=== PATIENT | female | born 1985 | race Two or more races ===

== ENCOUNTER 2022-11-06 19:56 | Emergency (ER) | payer OTHER ==
[~2022-11-06] VITALS: Ht 157.5 cm; Wt 65.9 kg
[2022-11-06] MEDS ORDERED: KETOROLAC TROMETH 60MG/2ML VIAL IM ONE (22:15)
[2022-11-06 22:51] VITALS: BP 120/85
== END 2022-11-06 22:41 | disposition home or self-care (01) ==
LOC: ER 19:56
DX: M79.642 Pain in left hand (principal); M79.641 Pain in right hand; M79.601 Pain in right arm; Z90.710 Acquired absence of both cervix and uterus
CPT/HCPCS: 73030; 73090; 73130; 96372; 99284; J1885

== ENCOUNTER 2022-11-11 19:53 | Emergency (ER) | payer OTHER ==
[~2022-11-11] VITALS: Ht 157.5 cm; Wt 145.0 kg
[2022-11-11 19:53] VITALS: BP 129/76
== END 2022-11-11 21:55 | disposition home or self-care (01) ==
LOC: ER 19:53
DX: S16.1XXA Strain of muscle, fascia and tendon at neck level, initial encounter (principal); Z90.710 Acquired absence of both cervix and uterus; Z98.890 Other specified postprocedural states; V43.52XA Car driver injured in collision with other type car in traffic accident, initial encounter; Y93.89 Activity, other specified; Y92.89 Other specified places as the place of occurrence of the external cause; Y99.8 Other external cause status

== ENCOUNTER 2023-08-07 20:04 | Emergency (ER) | payer OTHER ==
[~2023-08-07] VITALS: Ht 157.5 cm; Wt 70.4 kg
[2023-08-07 20:58] VITALS: BP 113/70; PULSE 94; RESP 18; TEMP 98.7; O2SAT 97
[2023-08-07] MEDS ORDERED: DICL50TA2 PO (21:30)
== END 2023-08-07 21:57 | disposition home or self-care (01) ==
LOC: ER 20:04
DX: S80.02XA Contusion of left knee, initial encounter (principal); S80.01XA Contusion of right knee, initial encounter; W18.09XA Striking against other object with subsequent fall, initial encounter; Y93.01 Activity, walking, marching and hiking; Y92.89 Other specified places as the place of occurrence of the external cause; Y99.8 Other external cause status
CPT/HCPCS: 73562

== ENCOUNTER 2023-08-22 08:41 | Emergency (ER) | payer OTHER ==
[~2023-08-22] VITALS: Ht 157.5 cm; Wt 70.2 kg
[~2023-08-22 08:41] MED LIST: DICL50TA2 PO
[2023-08-22 09:30] VITALS: BP 119/78; PULSE 118; RESP 16; TEMP 97.1; O2SAT 96
[2023-08-22] MEDS ORDERED: KETOROLAC TROMETH 60MG/2ML VIAL IM ONE (09:45)
[2023-08-22] MEDS ORDERED: IBUP-1456 PO (09:52)
== END 2023-08-22 09:55 | disposition home or self-care (01) ==
LOC: ER 08:45
DX: S83.92XA Sprain of unspecified site of left knee, initial encounter (principal); S83.91XA Sprain of unspecified site of right knee, initial encounter; Z90.710 Acquired absence of both cervix and uterus; W18.09XA Striking against other object with subsequent fall, initial encounter; Y93.89 Activity, other specified; Y92.89 Other specified places as the place of occurrence of the external cause; Y99.8 Other external cause status
CPT/HCPCS: 96372; 99283; J1885

== ENCOUNTER 2023-11-19 00:03 | Emergency (ER) | payer OTHER ==
[~2023-11-19] VITALS: Ht 157.5 cm; Wt 70.6 kg
[~2023-11-19 00:03] MED LIST changes: +IBUP-1456 PO
[2023-11-19] MEDS: IBUPROFEN 600 MG TAB PO ONE (00:46)
[2023-11-19 00:47] VITALS: BP 125/90; PULSE 110; RESP 20; TEMP 98.4; O2SAT 96
[2023-11-21] MEDS ORDERED: CYCL-839 PO (04:15)
[2023-11-21] MEDS ORDERED: IBUP1TAB5 PO (04:15)
== END 2023-11-19 00:50 | disposition home or self-care (01) ==
LOC: ER 00:03
DX: M25.512 Pain in left shoulder (principal); M25.511 Pain in right shoulder; M25.532 Pain in left wrist; M25.531 Pain in right wrist; M54.2 Cervicalgia; Z90.710 Acquired absence of both cervix and uterus

== ENCOUNTER 2024-02-27 15:25 | Emergency (ER) | payer OTHER ==
[~2024-02-27] VITALS: Ht 157.5 cm; Wt 70.2 kg
[~2024-02-27 15:25] MED LIST changes: +CYCL-839 PO; +IBUP1TAB5 PO
[2024-02-27 16:57] VITALS: BP 114/75; PULSE 110; RESP 16; TEMP 97.1; O2SAT 96
[2024-02-27] MEDS ORDERED: METH-1182 PO (17:28)
[2024-02-27] MEDS: KETOROLAC TROMETH 60MG/2ML VIAL IM ONE (17:47)
== END 2024-02-27 17:58 | disposition home or self-care (01) ==
LOC: ER 15:25
DX: S39.012A Strain of muscle, fascia and tendon of lower back, initial encounter (principal); S29.012A Strain of muscle and tendon of back wall of thorax, initial encounter; W18.30XA Fall on same level, unspecified, initial encounter; Y93.89 Activity, other specified; Y92.89 Other specified places as the place of occurrence of the external cause; Y99.0 Civilian activity done for income or pay
CPT/HCPCS: J1885

== ENCOUNTER 2024-05-31 03:11 | Emergency (ER) | payer OTHER ==
[~2024-05-31] VITALS: Ht 157.5 cm; Wt 71.8 kg
[~2024-05-31 03:11] MED LIST changes: +METH-1182 PO
[2024-05-31] MEDS: DexAMETHasone SOD PHOS 10MG/1ML VIAL INJ IM ONE (05:20)
[2024-05-31] MEDS: KETOROLAC TROMETH 60MG/2ML VIAL IM ONE (05:20)
[2024-05-31 05:33] VITALS: BP 110/76; PULSE 98; RESP 19; TEMP 98; O2SAT 96
== END 2024-05-31 06:01 | disposition home or self-care (01) ==
LOC: ER 03:11
DX: G43.109 Migraine with aura, not intractable, without status migrainosus (principal); Z79.899 Other long term (current) drug therapy; Z98.890 Other specified postprocedural states; Z90.710 Acquired absence of both cervix and uterus
CPT/HCPCS: 96372; 99284; J1100; J1885

== ENCOUNTER 2024-06-28 21:09 | Emergency (ER) | payer OTHER ==
[~2024-06-28] VITALS: Ht 157.5 cm; Wt 71.4 kg
[2024-06-28 21:42] VITALS: BP 105/74; PULSE 110; RESP 16; TEMP 98.3; O2SAT 98
[2024-06-28] MEDS ORDERED: ACET500T58 PO (22:14)
--- NOTE | 2024-06-28 22:15 | ED.PDOC ---
Back pain HPI HPI Comments 39-year-old female presents to ER for pain management of chronic pain. Patient reports that she has been experiencing chronic bilateral shoulder pain and lower lumbar back pain since 01/28/2024 from a fall injury that occurred at work. States that she has followed up with workmen's comp several times with regards to her pain and has had imaging done that showed no abnormalities but is still experiencing bilateral shoulder pain and lower lumbar back pain. She rates her current pain a 9/10. Patient presents to ER ambulatory on arrival, with steady gait, in no distress. Denies fever, shortness of breath, chest pain, abdominal/pelvic pain, numbness/tingling, changes in urination/BM or any further symptoms/complaints Chief Complaint: Back Pain Time Seen by MD: 21:16 Primary Care Provider: DR GUTIERREZ Reviewed Notes: Nurses Notes, Medications, Allergies Allergies: Coded Allergies: NO KNOWN ALLERGIES (Unverified , 11/06/22) Home Meds Active Scripts Methocarbamol (Methocarbamol) 750 Mg Tab, 750 MG PO BID, #20 TAB Prov:RUI HOWELL 02/27/24 Ibuprofen (Ibuprofen) 800 Mg Tab, 1 TAB PO TID, #30 TAB Prov:RUI HOWELL 02/27/24 Cyclobenzaprine Hcl (Cyclobenzaprine Hcl) 10 Mg Tab, 1 TAB PO Q8HPRN PRN, #15 TAB as needed for muscle spasm Prov:SHARONA MEDINA Q SHED BOSS 11/21/23 Ibuprofen Micronized (Ibuprofen) 600 Mg Tab, 1 TAB PO Q6HPRN PRN, #20 TAB as needed for pain Prov:SHARONA MEDINA Q SHED BOSS 11/21/23 Ibuprofen (Ibuprofen) 800 Mg Tab, 1 TAB PO TID, #30 TAB Prov:RUI HOWELL PA 08/22/23 Diclofenac Potassium (Diclofenac Potassium) 50 Mg Tab, 1 TAB PO BID PRN, #60 TAB 1 Refill Prov:TAMMY GARDNER 08/07/23 Information Source: Patient Mode of Arrival: Ambulatory Past Medical History PAST MEDICAL HISTORY: Denies Surgical History: , Hernia Repair, Hysterectomy 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 Family History Family History: Unknown Social History Smoker: Non-Smoker Alcohol: Denies ETOH Use Drugs: Denies Drug Use Lives In: Home Constitutional: denies: chills, diaphoresis, fatigue, fever, malaise, sweats, weakness, others EENTM: denies: blurred vision, double vision, ear bleeding, ear discharge, ear drainage, ear pain, ear ringing, eye pain, eye redness, hearing loss, mouth pain, mouth swelling, nasal discharge, nose bleeding, nose congestion, nose pain, photophobia, tearing, throat pain, throat swelling, voice changes, others Respiratory: denies: cough, hemoptysis, orthopnea, SOB at rest, shortness of breath, SOB with excertion, stridor, wheezing, others Cardiovascular: denies: chest pain, dizzy spells, diaphoresis, Dyspnea on exertion, edema, irregular heart beat, left arm pain, lightheadedness, palpitations, PND, syncope, others Gastrointestinal: denies: abdomen distended, abdominal pain, blood streaked bowels, constipated, diarrhea, dysphagia, difficulty swallowing, hematemesis, melena, nausea, poor appetite, poor fluid intake, rectal bleeding, rectal pain, vomiting, others Genitourinary: denies: abnormal vagina bleeding, burning, dyspareunia, dysuria, flank pain, frequency, hematuria, incontinence, pain, , vagina discharge, urgency, others Neurological: denies: dizziness, fainting, headache, left sided numbness, left sided weakness, numbness, paresthesia, pre-existing deficit, right sided numbness, right sided weakness, seizure, speech problems, tingling, tremors, weakness, others Musculoskeletal: reports: others (As stated in HPI) Integumetry: denies: bruises, change in color, change in hair/nails, dryness, laceration, lesions, lumps, rash, wounds, others Allergic/Immunocompromised: denies: Difficulty Healing, Frequent Infections, Hives, Itching, others Hematologic/Lymphatic: denies: anemia, blood clots, easy bleeding, easy bruising, swollen glands, others Endocrine: denies: excessive hunger, excessive sweating, excessive thirst, excessive urination, flushing, intolerance to cold, intolerance to heat, unexplained weight gain, unexplained weight loss, others Psychiatric: denies: anxiety, bipolar disorder, depression, hopeless, panic disorder, schizophrenia, sleepless, suicidal, others Physical Exam General Appearance: No Apparent Distress HEENT: PERRL/EOMI Neck: Full Range of Motion, Non-Tender, Normal Respiratory: Chest Non-Tender, Lungs Clear, No Accessory Muscle Use, No Res piratory Distress, Normal Breath Sounds Cardiovascular: No Murmur, No Gallop, Regular Rate/Rhythm Breast Exam: Deferred Gastrointestinal: Non Tender, No Pulsatile Mass, Soft Genitalia: Deferred Pelvic: Deferred Rectal: Deferred Extremities: No calf tenderness, Normal capillary refill, Normal range of motion Musculoskeletal : Extremity Location: Back (Slight TTP to bilateral lower lumbar paraspinals noted. No skin changes noted. Gait intact without abnormality), Shoulder (Slight TTP to bilateral GH joints. No deformities/skin changes noted. Negative Apley scratch test bilateral shoulders. Pulses intact) Neurologic: Alert, No Motor Deficits, Normal Affect, Normal Mood, No Sensory D eficits Cerebellar Function: Normal Reflexes: Normal Skin: Dry, Normal Color, Warm Lymphatic: No Adenopathy Was a procedure done? Was a procedure done?: No Sedation Sedation?: No Back Pain Differential Dx Differential Diagnosis: Fracture, Other (Neurovascular injury, dislocation) X-Ray, Labs, Meds, VS Vital Signs Date Time Temp Pulse Resp B/P (MAP) Pulse Ox O2 Delivery O2 Flow Rate FiO2 06/28/24 21:25 97.4 114 18 107/74 (85) 98 Patient neurovascularly intact and in no distress during ER visit/prior to discharge Advised on rest/no strenuous activity Workman's comp paperwork filled out Advised to follow up with PCP and workman's comp PCP in 1-2 days Patient verbalized understanding and agreeable with current plan of care Advised to return to ER immediately if symptoms worsen Time of 1ST Reevaluation: 21:54 Reevaluation 1ST: N/A Patient Education/Counseling: Diagnosis, Treatment, Prognosis, Need For Follow Up Family Education/Counseling: No Family Present Departure 1 Departure Time of Disposition: 22:10 Impression: Primary Impression: Chronic lumbar pain Qualified Codes: M54.50 - Low back pain, unspecified; G89.29 - Other chronic pain Additional Impressions: Chronic left shoulder pain Chronic right shoulder pain Work related injury Disposition: HOME / SELF CARE / HOMELESS Condition: Stable e-Prescriptions Acetaminophen (Acetaminophen) 500 Mg Tab 500 MG PO Q4HPRN, #30 TAB 0 Refills Prov: CARA PABLO 06/28/24 Discharged With: Self Critical Care Note Critical Care Time?: No Stability Stability form required: No Heart Score Heart Score: Heart Score Response (Comments) Value History N/A 0 EKG N/A 0 Age N/A 0 Risk Factors N/A 0 Troponin N/A 0 Total 0 CARA PABLO Jun 28, 2024 22:15
== END 2024-06-28 22:30 | disposition home or self-care (01) ==
LOC: ER 21:09
DX: G89.29 Other chronic pain (principal); M54.59 Other low back pain; M25.511 Pain in right shoulder; M25.512 Pain in left shoulder; Z79.899 Other long term (current) drug therapy; Z90.710 Acquired absence of both cervix and uterus; Z98.890 Other specified postprocedural states; X58.XXXA Exposure to other specified factors, initial encounter; Y93.89 Activity, other specified; Y92.89 Other specified places as the place of occurrence of the external cause; Y99.8 Other external cause status

== ENCOUNTER 2024-07-14 18:33 | Emergency (ER) | payer OTHER ==
[~2024-07-14] VITALS: Ht 157.5 cm; Wt 73.9 kg
[~2024-07-14 18:33] MED LIST changes: +ACET500T58 PO
[2024-07-14 19:15] VITALS: BP 104/64; PULSE 104; RESP 18; O2SAT 95
--- NOTE | 2024-07-14 20:12 | ED.PDOC ---
Musculoskeletal HPI Comments 39-year-old female presents to ER with complaints of work-related injury. Patient reports that she has had three separate work-related injuries over the course of 5 months from mechanical falls and has since been experiencing upper/lower back pain, bilateral hand pain, bilateral knee pain and bilateral ankle pain. She rates her current pain a 8/10. Denies use of medications for current symptoms. Patient presents to ER ambulatory on arrival, with steady gait, in no distress and states she has followed-up with workmans comp with regards to her work related injuries but continues to have similar pain to bilateral hands, bilateral knees, bilateral ankles and upper/lower back and is requesting a work-note in ER today. Denies any further symptoms/complaints Chief Complaint: Fall Injury Time Seen by MD: 18:36 Primary Care Provider: DR GUTIERREZ Reviewed Notes: Nurses Notes, Medications, Allergies Allergies: Coded Allergies: NO KNOWN ALLERGIES (Unverified , 11/06/22) Home Meds Active Scripts Acetaminophen (Acetaminophen) 500 Mg Tab, 500 MG PO Q4HPRN, #30 TAB 0 Refills Prov:CARA PABLO 07/14/24 Acetaminophen (Acetaminophen) 500 Mg Tab, 500 MG PO Q4HPRN, #30 TAB 0 Refills Prov:CARA PABLO 06/28/24 Methocarbamol (Methocarbamol) 750 Mg Tab, 750 MG PO BID, #20 TAB Prov:RUI HOWELL 02/27/24 Ibuprofen (Ibuprofen) 800 Mg Tab, 1 TAB PO TID, #30 TAB Prov:RUI HOWELL 02/27/24 Cyclobenzaprine Hcl (Cyclobenzaprine Hcl) 10 Mg Tab, 1 TAB PO Q8HPRN PRN, #15 TAB as needed for muscle spasm Prov:SHARONA MEDINA Q SALES AND MARKETING ASSOCIATE 11/21/23 Ibuprofen Micronized (Ibuprofen) 600 Mg Tab, 1 TAB PO Q6HPRN PRN, #20 TAB as needed for pain Prov:TANJA MEDINAA Q SALES AND MARKETING ASSOCIATE 11/21/23 Ibuprofen (Ibuprofen) 800 Mg Tab, 1 TAB PO TID, #30 TAB Prov:RUI HOWELL 08/22/23 Diclofenac Potassium (Diclofenac Potassium) 50 Mg Tab, 1 TAB PO BID PRN, #60 TAB 1 Refill Prov:TAMMY GARDNER 08/07/23 Information Source: Patient Mode of Arrival: Ambulatory Past Medical History PAST MEDICAL HISTORY: Denies Surgical History: , Hernia Repair, Hysterectomy 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 Pertinent LINE REPAIRER History Family History Family History: Unknown Social History Smoker: Non-Smoker Alcohol: Denies ETOH Use Drugs: Denies Drug Use Lives In: Home Constitutional: denies: chills, diaphoresis, fatigue, fever, malaise, sweats, weakness, others EENTM: denies: blurred vision, double vision, ear bleeding, ear discharge, ear drainage, ear pain, ear ringing, eye pain, eye redness, hearing loss, mouth pain, mouth swelling, nasal discharge, nose bleeding, nose congestion, nose pain, photophobia, tearing, throat pain, throat swelling, voice changes, others Respiratory: denies: cough, hemoptysis, orthopnea, SOB at rest, shortness of breath, SOB with excertion, stridor, wheezing, others Cardiovascular: denies: chest pain, dizzy spells, diaphoresis, Dyspnea on exertion, edema, irregular heart beat, left arm pain, lightheadedness, palpitations, PND, syncope, others Gastrointestinal: denies: abdomen distended, abdominal pain, blood streaked bowels, constipated, diarrhea, dysphagia, difficulty swallowing, hematemesis, melena, nausea, poor appetite, poor fluid intake, rectal bleeding, rectal pain, vomiting, others Genitourinary: denies: abnormal vagina bleeding, burning, dyspareunia, dysuria, flank pain, frequency, hematuria, incontinence, pain, , vagina discharge, urgency, others Neurological: denies: dizziness, fainting, headache, left sided numbness, left sided weakness, numbness, paresthesia, pre-existing deficit, right sided numbness, right sided weakness, seizure, speech problems, tingling, tremors, weakness, others Musculoskeletal: reports: others (As stated in HPI) Integumetry: denies: bruises, change in color, change in hair/nails, dryness, laceration, lesions, lumps, rash, wounds, others Allergic/Immunocompromised: denies: Difficulty Healing, Frequent Infections, Hives, Itching, others Hematologic/Lymphatic: denies: anemia, blood clots, easy bleeding, easy bruising, swollen glands, others Endocrine: denies: excessive hunger, excessive sweating, excessive thirst, excessive urination, flushing, intolerance to cold, intolerance to heat, unexplained weight gain, unexplained weight loss, others Psychiatric: denies: anxiety, bipolar disorder, depression, hopeless, panic disorder, schizophrenia, sleepless, suicidal, others Physical Exam General Appearance: No Apparent Distress HEENT: PERRL/EOMI Neck: Full Range of Motion, Non-Tender, Normal Respiratory: Chest Non-Tender, Lungs Clear, No Accessory Muscle Use, No Respiratory Distress, Normal Breath Sounds Cardiovascular: No Murmur, No Gallop, Regular Rate/Rhythm Breast Exam: Deferred Gastrointestinal: NOT DONE Genitalia: Deferred Pelvic: Deferred Rectal: Deferred Extremities: Normal capillary refill, Normal range of motion Musculoskeletal : Extremity Location: Ankle (No TTP/skin changes to bilateral ankles noted), Back (Minimal TTP diffuse to thoracic and lumbar paraspinals noted. No skin changes appreciated. Gait intact without abnormality), Hand (Minimal TTP noted diffuse to joints of bilateral hands. No skin changes/deformities noted. No TTP to bilateral wrists noted. Shear Tender strength intact and equal bilaterally. Pulses intact), Knee (Minimal TTP to bilateral anterior knees noted. No skin changes/deformities appreciated. Negative anterior/Natalie's test noted bilaterally. Pulses intact) Neurologic: Alert, pipe organ builder II-XII nml as Tested, No Motor Deficits, Normal Affect, Normal Mood, No Sensory Deficits Cerebellar Function: Normal Reflexes: Normal Skin: Dry, Normal Color, Warm Peripheral Pulses: 2+ femoral (R), 2+ femoral (L), 2+ dorsalis pedis (R), 2+ dorsalis pedis (L), 2+ Radial (R), 2+ Radial (L), 2+ Brachial (R), 2+ Brachial (L) Lymphatic: No Adenopathy Was a procedure done? Was a procedure done?: No Sedation Sedation?: No Differential Diagnosis EXT Differential Diagnosis: Fracture, Dislocation, Neurovascular injury X-Ray, Labs, Meds, VS Vital Signs Date Time Temp Pulse Resp B/P (MAP) Pulse Ox O2 Delivery O2 Flow Rate FiO2 07/14/24 19:15 98.3 104 18 104/64 (90) 95 Patient neurovascularly intact and in no distress during ER visit/prior to discharge Workman's comp paperwork filled out Advised to follow up with PCP and workman's comp PCP in 1-2 days Patient verbalized understanding and agreeable with current plan of care Advised to return to ER immediately if symptoms worsen Time of 1ST Reevaluation: 19:54 Reevaluation 1ST: N/A Patient Education/Counseling: Diagnosis, Treatment, Prognosis, Need For Follow Up Family Education/Counseling: No Family Present Departure 1 Departure Time of Disposition: 20:10 Impression: Primary Impression: Chronic back pain Qualified Codes: M54.9 - Dorsalgia, unspecified; G89.29 - Other chronic pain Additional Impressions: Chronic hand pain Qualified Codes: M79.643 - Pain in unspecified hand; G89.29 - Other chronic pain Chronic knee pain Qualified Codes: M25.561 - Pain in right knee; M25.562 - Pain in left knee; G89.29 - Other chronic pain Chronic ankle pain Qualified Codes: M25.571 - Pain in right ankle and joints of right foot; M25.572 - Pain in left ankle and joints of left foot; G89.29 - Other chronic pain Work related injury Disposition: 01 HOME / SELF CARE / HOMELESS Condition: Stable e-Prescriptions Acetaminophen (Acetaminophen) 500 Mg Tab 500 MG PO Q4HPRN, #30 TAB 0 Refills Prov: CARA PABLO 07/14/24 Critical Care Note Critical Care Time?: No Stability Stability form required: No Heart Score Heart Score: Heart Score Response (Comments) Value History N/A 0 EKG N/A 0 Age N/A 0 Risk Factors N/A 0 Troponin N/A 0 Total 0 CARA PABLO Jul 14, 2024 20:12
== END 2024-07-14 20:38 | disposition home or self-care (01) ==
LOC: ER 18:33
DX: M79.641 Pain in right hand (principal); M79.642 Pain in left hand; M25.561 Pain in right knee; M25.562 Pain in left knee; M25.571 Pain in right ankle and joints of right foot; M25.572 Pain in left ankle and joints of left foot; M54.50 Low back pain, unspecified; G89.29 Other chronic pain; Z90.710 Acquired absence of both cervix and uterus; Z98.890 Other specified postprocedural states; Z79.1 Long term (current) use of non-steroidal anti-inflammatories (NSAID); Z79.899 Other long term (current) drug therapy; X58.XXXA Exposure to other specified factors, initial encounter; Y93.89 Activity, other specified; Y92.89 Other specified places as the place of occurrence of the external cause; Y99.0 Civilian activity done for income or pay

== ENCOUNTER 2024-10-27 14:08 | Emergency (ER) | payer OTHER ==
[~2024-10-27] VITALS: Ht 157.5 cm; Wt 73.6 kg
--- NOTE | 2024-10-27 14:41 | ED.PDOC ---
History of Present Illness HPI Comments 39F presents to the ER w/ prior Hx of anxiety which is associated to the c/c of Bilateral LE pain. Pt reports that she needs a work injury note due from her having ongoing pain on her bilateral feet, lower back, knee pain and wrist pain, all that happened months ago and are no new injuries. Her earliest work related injury was in June. SHx of , Hysterectomy and Hernia Repair. Denies chills, fever, N/V/D, SOB, CP or no other associated symptom's, modifiers, recent injuries or sick contact at this time. Time Seen by MD: 14:30 Primary Care Provider: DR GUTIERREZ Reviewed Notes: Nurses Notes, Medications, Allergies Allergies: Coded Allergies: NO KNOWN ALLERGIES (Unverified , 11/06/22) Home Meds Active Scripts Acetaminophen (Acetaminophen) 500 Mg Tab, 500 MG PO Q4HPRN, #30 TAB 0 Refills Prov:CARA PABLO 07/14/24 Acetaminophen (Acetaminophen) 500 Mg Tab, 500 MG PO Q4HPRN, #30 TAB 0 Refills Prov:CARA PABLO 06/28/24 Methocarbamol (Methocarbamol) 750 Mg Tab, 750 MG PO BID, #20 TAB Prov:RUI HOWELL 02/27/24 Ibuprofen (Ibuprofen) 800 Mg Tab, 1 TAB PO TID, #30 TAB Prov:RUI HOWELL 02/27/24 Cyclobenzaprine Hcl (Cyclobenzaprine Hcl) 10 Mg Tab, 1 TAB PO Q8HPRN PRN, #15 TAB as needed for muscle spasm Prov:SHARONA MEDINA SPORTS ATTORNEY 11/21/23 Ibuprofen Micronized (Ibuprofen) 600 Mg Tab, 1 TAB PO Q6HPRN PRN, #20 TAB as needed for pain Prov:TANJA MEDINAA Q SPORTS ATTORNEY 11/21/23 Ibuprofen (Ibuprofen) 800 Mg Tab, 1 TAB PO TID, #30 TAB Prov:RUI HOWELL 08/22/23 Diclofenac Potassium (Diclofenac Potassium) 50 Mg Tab, 1 TAB PO BID PRN, #60 TAB 1 Refill Prov:TAMMY GARDNER 08/07/23 Information Source: Patient Mode of Arrival: Ambulatory Severity: Moderate Timing: Months Duration: Since onset Prehospital treatment: None Past Medical History PAST MEDICAL HISTORY: Anxiety Surgical History: , Hernia Repair, Hysterectomy 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 Family History Family History: Reviewed,noncontributory to illness, Unknown Social History Smoker: Non-Smoker Alcohol: Denies ETOH Use Drugs: Denies Drug Use Lives In: Home Constitutional: denies: chills, diaphoresis, fatigue, fever, malaise, sweats, weakness, others EENTM: denies: blurred vision, double vision, ear bleeding, ear discharge, ear drainage, ear pain, ear ringing, eye pain, eye redness, hearing loss, mouth pain, mouth swelling, nasal discharge, nose bleeding, nose congestion, nose pain, photophobia, tearing, throat pain, throat swelling, voice changes, others Respiratory: denies: cough, hemoptysis, orthopnea, SOB at rest, shortness of breath, SOB with excertion, stridor, wheezing, others Cardiovascular: denies: chest pain, dizzy spells, diaphoresis, Dyspnea on exertion, edema, irregular heart beat, left arm pain, lightheadedness, palpitations, PND, syncope, others Gastrointestinal: denies: abdomen distended, abdominal pain, blood streaked bowels, constipated, diarrhea, dysphagia, difficulty swallowing, hematemesis, melena, nausea, poor appetite, poor fluid intake, rectal bleeding, rectal pain, vomiting, others Genitourinary: denies: abnormal vagina bleeding, burning, dyspareunia, dysuria, flank pain, frequency, hematuria, incontinence, pain, , vagina discharge, urgency, others Neurological: denies: dizziness, fainting, headache, left sided numbness, left sided weakness, numbness, paresthesia, pre-existing deficit, right sided numbness, right sided weakness, seizure, speech problems, tingling, tremors, weakness, others Musculoskeletal: reports: back pain, others (Feet pain, wrist pain, knee pain); denies: gout, joint pain, joint swelling, muscle pain, muscle stiffness, neck pain Integumetry: denies: bruises, change in color, change in hair/nails, dryness, laceration, lesions, lumps, rash, wounds, others Allergic/Immunocompromised: denies: Difficulty Healing, Frequent Infections, Hives, Itching, others Hematologic/Lymphatic: denies: anemia, blood clots, easy bleeding, easy bruising, swollen glands, others Endocrine: denies: excessive hunger, excessive sweating, excessive thirst, excessive urination, flushing, intolerance to cold, intolerance to heat, unexplained weight gain, unexplained weight loss, others Psychiatric: denies: anxiety, bipolar disorder, depression, hopeless, panic disorder, schizophrenia, sleepless, suicidal, others All Other Systems: Reviewed and Negative Physical Exam General Appearance: Moderate Distress, Normal HEENT: Normal ENT Inspection, Pharynx Normal, TMs Normal Neck: Full Range of Motion, Non-Tender, Normal, Normal Inspection Respiratory: Chest Non-Tender, Lungs Clear, No Accessory Muscle Use, No Respiratory Distress, Normal Breath Sounds Cardiovascular: No Edema, No JVD, No Murmur, No Gallop, Normal Peripheral Pulses, Regular Rate/Rhythm Breast Exam: Deferred Gastrointestinal: No Organomegaly, Non Tender, No Pulsatile Mass, Normal Bowel Sounds, Soft Genitalia: Deferred Pelvic: Deferred Rectal: Deferred Extremities: No calf tenderness, Normal capillary refill, Normal inspection, No rmal range of motion, Non-tender, No pedal edema Musculoskeletal : Apperance: Normal Neurologic: Alert, special machine operator II-XII nml as Tested, No Motor Deficits, Normal Affect, Normal Mood, No Sensory Deficits Cerebellar Function: Normal Reflexes: Normal Skin: Dry, Normal Color, Warm Peripheral Pulses: 3+ Radial (R), 3+ Radial (L) Lymphatic: No Adenopathy Was a procedure done? Was a procedure done?: No Differential Dx Considerations may include: Muscle strain X-Ray, Labs, Meds, VS Vital Signs Date Time Temp Pulse Resp B/P (MAP) Pulse Ox O2 Delivery O2 Flow Rate FiO2 10/27/24 14:54 98.0 117 20 130/82 (98) 98 CLINICAL INDICATION: Trauma TECHNIQUE: 1 radiographic views of the pelvis were obtained. Comparison: None FINDINGS/IMPRESSION: There is no evidence of acute fracture or dislocation. The visualized joint space is well maintained. The alignment is anatomical. There is no radiopaque foreign body. INDICATION: Trauma COMPARISON: XY LUMBAR SPINE 3 VIEW on DOS: 11/21/23 TECHNIQUE: 3 views of the lumbar spine were obtained. FINDINGS: The lumbar vertebral alignment is normal. The intervertebral disc spaces are well-maintained. No significant facet arthropathy is noted. No acute fracture, vertebral compression deformity or aggressive osseous lesions. The paravertebral soft tissues are grossly unremarkable. IMPRESSION: No acute fracture. ICAL INDICATION: fall TECHNIQUE: 2 radiographic views of the left knee were obtained. Comparison: XY R KNEE 3V XRAY on DOS: 08/07/23, XY L KNEE 3V XRAY on DOS: 08/07/23 FINDINGS/IMPRESSION: There is no evidence of acute fracture or dislocation. The visualized joint space is well maintained. The alignment is anatomical. There is no radiopaque foreign body. ICAL INDICATION: fall TECHNIQUE: 2 radiographic views of the right knee were obtained. Comparison: XY R KNEE 3V XRAY on DOS: 08/07/23, XY L KNEE 3V XRAY on DOS: 08/07/23 FINDINGS/IMPRESSION: There is no evidence of acute fracture or dislocation. The visualized joint space is well maintained. The alignment is anatomical. There is no radiopaque foreign body. ICAL INDICATION: fall TECHNIQUE: 2 radiographic views of the left foot left foot were obtained. Comparison: None FINDINGS/IMPRESSION: There is no evidence of acute fracture or dislocation. Small plantar calcaneal enthesophyte. The visualized joint space is well maintained. The alignment is anatomical. There is no radiopaque foreign body. ICAL INDICATION: fall TECHNIQUE: 2 radiographic views of the right foot were obtained. Comparison: None FINDINGS/IMPRESSION: There is no evidence of acute fracture or dislocation. Small plantar calcaneal enthesophyte. The visualized joint space is well maintained. The alignment is anatomical. There is no radiopaque foreign body. Patient alert. No sign of distress. Ambulating without difficulty. Vitals stable. No deformity. No recent fall. No recent trauma. Moving all extremities. X-ray of the feet because she was complaining of pain was within normal limits. Her steroids is not matching. No sepsis. No sign of any fractures. As mentioned before she is moving all extremities. Able to write with a pen without difficulty. He is able to stand on her feet without falling. No sign of any back spasm. No sign of any back fracture. She is able to withstand her weight. Could not understand why she is in the ER even though she did not have any trauma recently. All her symptoms are from last June. No new symptom. Abdomen is soft nontender. Mentating well. No sign of TIA. Good lung expansion. Physical examination pristine. She will possibly need MRI for further testing by her primary care physician. No acute process in the ER. No leg swelling. All imaging studies are within normal limits. Was given [place] in the ER. Explained to the patient in detail. Was told to follow up with her primary care physician. Was told to come back if there is any problem. Time of 1ST Reevaluation: 15:00 Reevaluation 1ST: Improved Patient Education/Counseling: Diagnosis, Treatment, Prognosis Family Education/Counseling: No Family Present Departure 1 Departure Time of Disposition: 15:51 Impression: Primary Impression: Muscle strain Additional Impression: Chronic lumbar pain Qualified Codes: M54.50 - Low back pain, unspecified; G89.29 - Other chronic pain Disposition: 01 HOME / SELF CARE / HOMELESS Condition: Good Discharged With: Self Critical Care Note Critical Care Time?: No Stability Stability form required: No Heart Score Heart Score: Heart Score Response (Comments) Value History N/A 0 EKG N/A 0 Age N/A 0 Risk Factors N/A 0 Troponin N/A 0 Total 0 I personally scribed for PILY KINGSLEY MD ([email or web address]) on 10/27/24 at 14:41. Electronically submitted by Law Coburn ([email or web address]). I personally scribed for PILY KINGSLEY MD ([email or web address]) on 10/27/24 at 15:32. Electronically submitted by Law Coburn ([email or web address]). PILY KINGSLEY MD Oct 27, 2024 14:41
--- NOTE | 2024-10-27 15:04 | DVH ---
CLINICAL INDICATION: Trauma TECHNIQUE: 1 radiographic views of the pelvis were obtained. Comparison: None FINDINGS/IMPRESSION: There is no evidence of acute fracture or dislocation. The visualized joint space is well maintained. The alignment is anatomical. There is no radiopaque foreign body.
--- NOTE | 2024-10-27 15:09 | DVH ---
INDICATION: Trauma COMPARISON: XY LUMBAR SPINE 3 VIEW on DOS: 11/21/23 TECHNIQUE: 3 views of the lumbar spine were obtained. FINDINGS: The lumbar vertebral alignment is normal. The intervertebral disc spaces are well-maintained. No significant facet arthropathy is noted. No acute fracture, vertebral compression deformity or aggressive osseous lesions. The paravertebral soft tissues are grossly unremarkable. IMPRESSION: No acute fracture.
--- NOTE | 2024-10-27 15:16 | DVH ---
CLINICAL INDICATION: fall TECHNIQUE: 2 radiographic views of the right foot were obtained. Comparison: None FINDINGS/IMPRESSION: There is no evidence of acute fracture or dislocation. Small plantar calcaneal enthesophyte. The visualized joint space is well maintained. The alignment is anatomical. There is no radiopaque foreign body.
--- NOTE | 2024-10-27 15:17 | DVH ---
CLINICAL INDICATION: fall TECHNIQUE: 2 radiographic views of the left foot left foot were obtained. Comparison: None FINDINGS/IMPRESSION: There is no evidence of acute fracture or dislocation. Small plantar calcaneal enthesophyte. The visualized joint space is well maintained. The alignment is anatomical. There is no radiopaque foreign body.
--- NOTE | 2024-10-27 15:22 | DVH ---
CLINICAL INDICATION: fall TECHNIQUE: 2 radiographic views of the right knee were obtained. Comparison: XY R KNEE 3V XRAY on DOS: 08/07/23, XY L KNEE 3V XRAY on DOS: 08/07/23 FINDINGS/IMPRESSION: There is no evidence of acute fracture or dislocation. The visualized joint space is well maintained. The alignment is anatomical. There is no radiopaque foreign body.
--- NOTE | 2024-10-27 15:23 | DVH ---
CLINICAL INDICATION: fall TECHNIQUE: 2 radiographic views of the left knee were obtained. Comparison: XY R KNEE 3V XRAY on DOS: 08/07/23, XY L KNEE 3V XRAY on DOS: 08/07/23 FINDINGS/IMPRESSION: There is no evidence of acute fracture or dislocation. The visualized joint space is well maintained. The alignment is anatomical. There is no radiopaque foreign body.
[2024-10-27] MEDS: HYDROcodone-ACET 5/325MG TAB PO ONE (16:00)
[2024-10-27] MEDS ORDERED: CYCL-839 PO (17:52)
[2024-10-27 18:03] VITALS: BP 109/77; PULSE 113; RESP 17; TEMP 98.7; O2SAT 96
== END 2024-10-27 15:54 | disposition home or self-care (01) ==
LOC: ER 14:08
DX: S96.911A Strain of unspecified muscle and tendon at ankle and foot level, right foot, initial encounter (principal); S96.912A Strain of unspecified muscle and tendon at ankle and foot level, left foot, initial encounter; S66.911A Strain of unspecified muscle, fascia and tendon at wrist and hand level, right hand, initial encounter; S66.912A Strain of unspecified muscle, fascia and tendon at wrist and hand level, left hand, initial encounter; G89.29 Other chronic pain; M54.50 Low back pain, unspecified; M25.561 Pain in right knee; M25.562 Pain in left knee; F41.9 Anxiety disorder, unspecified; Z90.710 Acquired absence of both cervix and uterus; Z98.890 Other specified postprocedural states; X58.XXXA Exposure to other specified factors, initial encounter; Y93.89 Activity, other specified; Y92.89 Other specified places as the place of occurrence of the external cause; Y99.8 Other external cause status
CPT/HCPCS: 72100; 72170; 73560; 73620

== ENCOUNTER 2024-12-30 19:52 | Emergency (ER) | payer OTHER ==
[~2024-12-30] VITALS: Ht 157.5 cm; Wt 69.7 kg
--- NOTE | 2024-12-30 21:05 | ED.PDOC ---
SOB-HPI HPI Comments 39y F who presents to the ED for chief complaint of cough. Pt states she has been having cough with new associated episodes of urination during episodes of intense cough episodes over the past few days. Pt states her vomit has was blue/green grossly. Pt states she has also been having bilateral leg pain with associated nausea and diarrhea. Pt otherwise denies any recent sick contacts. Pt denies any other symptoms at this time. 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 Family History Family History: Reviewed,noncontributory to illness, Unknown Social History Smoker: Non-Smoker Alcohol: Denies ETOH Use Drugs: Denies Drug Use Lives In: Home Constitutional: denies: chills, diaphoresis, fatigue, fever, malaise, sweats, weakness, others EENTM: denies: blurred vision, double vision, ear bleeding, ear discharge, ear drainage, ear pain, ear ringing, eye pain, eye redness, hearing loss, mouth pain, mouth swelling, nasal discharge, nose bleeding, nose congestion, nose pain, photophobia, tearing, throat pain, throat swelling, voice changes, others Respiratory: reports: cough; denies: hemoptysis, orthopnea, SOB at rest, shortness of breath, SOB with excertion, stridor, wheezing, others Cardiovascular: denies: chest pain, dizzy spells, diaphoresis, Dyspnea on exertion, edema, irregular heart beat, left arm pain, lightheadedness, palpitations, PND, syncope, others Gastrointestinal: reports: diarrhea, nausea, vomiting; denies: abdomen distended, abdominal pain, blood streaked bowels, constipated, dysphagia, difficulty swallowing, hematemesis, melena, poor appetite, poor fluid intake, rectal bleeding, rectal pain, others Genitourinary: denies: abnormal vagina bleeding, burning, dyspareunia, dysuria, flank pain, frequency, hematuria, incontinence, pain, , vagina discharge, urgency, others Neurological: denies: dizziness, fainting, headache, left sided numbness, left sided weakness, numbness, paresthesia, pre-existing deficit, right sided numbness, right sided weakness, seizure, speech problems, tingling, tremors, weakness, others Musculoskeletal: denies: back pain, gout, joint pain, joint swelling, muscle pain, muscle stiffness, neck pain, others Integumetry: denies: bruises, change in color, change in hair/nails, dryness, laceration, lesions, lumps, rash, wounds, others Allergic/Immunocompromised: denies: Difficulty Healing, Frequent Infections, Hives, Itching, others Hematologic/Lymphatic: denies: anemia, blood clots, easy bleeding, easy bruising, swollen glands, others Endocrine: denies: excessive hunger, excessive sweating, excessive thirst, excessive urination, flushing, intolerance to cold, intolerance to heat, unexplained weight gain, unexplained weight loss, others Psychiatric: denies: anxiety, bipolar disorder, depression, hopeless, panic disorder, schizophrenia, sleepless, suicidal, others All Other Systems: Reviewed and Negative Physical Exam General Appearance: No Apparent Distress HEENT: Normal ENT Inspection, Pharynx Normal, TMs Normal Neck: Full Range of Motion, Non-Tender, Normal, Normal Inspection Respiratory: Chest Non-Tender, No Accessory Muscle Use, No Respiratory Distress, Rhonchi Cardiovascular: No Edema, No JVD, No Murmur, No Gallop, Normal Peripheral Pulses, Regular Rate/Rhythm Breast Exam: Deferred Gastrointestinal: No Organomegaly, Non Tender, No Pulsatile Mass, Normal Bowel Sounds, Soft Genitalia: Deferred Pelvic: Deferred Rectal: Deferred Extremities: No calf tenderness, Normal capillary refill, Normal inspection, Normal range of motion, Non-tender, No pedal edema Musculoskeletal : Apperance: Normal Neurologic: Alert, attending psychiatrist II-XII nml as Tested, No Motor Deficits, Normal Affect, Normal Mood, No Sensory Deficits Cerebellar Function: Normal Reflexes: Normal Skin: Dry, Normal Color, Warm Lymphatic: No Adenopathy Was a procedure done? Was a procedure done?: No Differential Dx Differential Diagnosis: Bronchitis, Pneumonia, Pulmonary Embolism Comments stress incontinence, viral syndrome, COVID, X-Ray, Labs, Meds, VS Lab Test 12/30/24 21:10 Range/Units Influenza Type A Antigen Negative Negative Influenza Type B Antigen Negative Negative SARS-CoV-2 Antigen (Rapid) Negative NEGATIVE The patient was COVID test as well as influenza a and influenza B are negative The patient was chest x-ray is pending The patient was being started on Zithromax and a Medrol Dosepak The patient was being signed out to Dr. Delaney Images Reviewed?: Images reviewed and evaluated by me Time of 1ST Reevaluation: 21:30 Reevaluation 1ST: Unchanged Patient Education/Counseling: Diagnosis, Treatment, Prognosis, Need For Follow Up Family Education/Counseling: No Family Present Departure 1 Departure Time of Disposition: 22:24 Impression: Primary Impression: Acute bronchitis Qualified Codes: J20.9 - Acute bronchitis, unspecified Disposition: 01 HOME / SELF CARE / HOMELESS Condition: Fair e-Prescriptions Methylprednisolone (Medrol Dosepak) 4 Mg Evaristo 4 MG PO UD, #21 TAB UAD Prov: FAHEEM MEZA MD 12/30/24 Azithromycin (Zithromax) 500 Mg Tab 1 TAB PO DAILY, #5 TAB Prov: FAHEEM MEZA MD 12/30/24 Discharged With: Self Critical Care Note Critical Care Time?: No Stability Stability form required: No Heart Score Heart Score: Heart Score Response (Comments) Value History N/A 0 EKG N/A 0 Age N/A 0 Risk Factors N/A 0 Troponin N/A 0 Total 0 I personally scribed for FAHEEM MEZA MD ([email or web address]) on 12/30/24 at 21:05. Electronically submitted by Wallace Campbell ([email or web address]). FAHEEM MEZA MD December 30, 2024 21:05
[2024-12-30 22:19] LABS: COVID19 ANTIGEN SOFIA FIA NEGATIVE (NEGATIVE); Rapid Influenza A Negative (Negative); Rapid Influenza B Negative (Negative)
[2024-12-30] MEDS ORDERED: AZIT500T PO (22:24)
[2024-12-30] MEDS ORDERED: METH4PAK PO (22:24)
--- NOTE | 2024-12-30 23:01 | DVH ---
XY CHEST TWO VIEWS ROUTINE CLINICAL HISTORY: cough COMPARISON: None TECHNIQUE: Frontal and lateral view of the chest was obtained FINDINGS: Lines and Tubes: None Lungs: No focal consolidation. Pleura: No effusion. No pneumothorax. Cardiomediastinal contours: Unremarkable Bones: No acute osseous abnormality. IMPRESSION: 1. No acute cardiopulmonary disease.
[2024-12-31 01:30] VITALS: BP 125/86; PULSE 99; RESP 16; TEMP 98.7; O2SAT 97
== END 2024-12-31 01:40 | disposition home or self-care (01) ==
LOC: ER 19:52
DX: J20.9 Acute bronchitis, unspecified (principal); M79.604 Pain in right leg; M79.605 Pain in left leg; R11.2 Nausea with vomiting, unspecified; R19.7 Diarrhea, unspecified; F41.9 Anxiety disorder, unspecified; Z20.822 Contact with and (suspected) exposure to COVID-19; Z90.710 Acquired absence of both cervix and uterus; Z98.890 Other specified postprocedural states
CPT/HCPCS: 36415; 71046; 87426; 87804

== ENCOUNTER 2025-01-03 21:29 | Inpatient (IN) | payer OTHER ==
[~2025-01-03] VITALS: Ht 157.5 cm; Wt 70.8 kg
[~2025-01-03 21:29] MED LIST changes: +AZIT500T PO; +METH4PAK PO
[2025-01-03 22:35] LABS: Basophils # (auto) 0.1 10 ^3/uL (0-0.2); Eosinophils # (auto) 0 10 ^3/uL (0-0.8); Eosinophils % (auto) 0.1 % (0.0-7.0); Hematocrit 40.3 % (36.0-46.0); Hemoglobin 13.5 g/dL (12.2-16.2); Lymphocytes # (auto) 1.5 10 ^3/uL (0.4-5.4); Lymphocytes % (auto) 17.5 % (10.0-50.0); Mean Corpuscular Hemoglobin 26.3 pg (28.0-32.0); Mean Corpuscular Hgb Conc. 33.5 g/dL (32.0-36.0); Mean Corpuscular Volume 78.5 fL (80.0-100.0); Monocytes # (auto) 0.3 10 ^3/uL (0-1.3); Monocytes % (auto) 4.1 % (0.0-12.0); Neutrophils # (auto) 6.7 10 ^3/uL (1.6-8.6); Neutrophils % (auto) 77.3 % (37.0-80.0); Nucleated Red Blood Cells % 0.1 %; Platelet Count (auto) 361 10^3/uL (140-450); Red Blood Cells 5.13 10^6/uL (4.0-5.20); Red Cell Distribution Width 13.2 % (11.8-14.3); White Blood Cell 8.6 10^3/uL (4.4-10.8)
[2025-01-03 22:44] LABS: Potassium 4.6 mmol/L (3.5-5.1)
[2025-01-03 22:45] LABS: Anion Gap 10 (5-15); Calcium 10.1 mg/dL (8.7-10.4); Carbon Dioxide 24 mmol/L (20-31)
[2025-01-03 22:50] LABS: BUN/Creatinine Ratio 16.5 (10.0-20.0); Blood Urea Nitrogen 20 mg/dL (9-23)
--- NOTE | 2025-01-03 22:52 | DVH ---
TRANSABDOMINAL AND TRANSVAGINAL PELVIC ULTRASOUND CLINICAL HISTORY: vag bleed TECHNIQUE: Multiple grayscale ultrasound images were obtained of the pelvis via transabdominal and tr ansvaginal approach. Limited color Doppler and spectral Doppler acquisitions were also obtained. COMPARISON: None FINDINGS: Uterus: Prior hysterectomy. There are cervical nabothian cysts. Largest measuring 1.3 cm. Right adnexa: right ovary not visualized. No right adnexal mass seen. Left adnexa: left ovary not visualized. No left adnexal mass seen. Other: None IMPRESSION: 1. Prior hysterectomy. 2. Ovaries are not visualized. 3. Cervical nabothian cysts are present.
[2025-01-03 23:00] LABS: Chloride 98 mmol/L (98-107); Sodium 132 mmol/L (136-145)
[2025-01-03 23:04] LABS: Glucose 549 mg/dL (74-106)
[2025-01-04 00:28] LABS: Urine Bacteria None Seen /hpf (None Seen)
[2025-01-04 00:49] LABS: Urine Blood Negative /uL (Negative); Urine Clarity Clear (Clear); Urine Color Dark-Yellow (Yellow); Urine Hyaline Cast FEW /lpf (0 - 2); Urine Mucus FEW (None Seen); Urine Protein, UAD 1+ (Negative); Urine Specific Gravity 1.032 (1.001-1.035); Urine Squamous Epithelial Cell FEW /hpf (<5); Urine Urobilinogen Normal (Negative); Urine WBC 1 /HPF (0-5); Urine pH 5.5 (5.0-9.0)
--- NOTE | 2025-01-04 01:21 | ED.PDOC ---
History of Present Illness HPI Comments 39-year-old female complaining of vaginal bleeding x4 days. States initial day one that has a large clot. States the following days it has been small amounts where she notices blood tinge when wiping. Patient states she had partial hysterectomy done four years ago. Was told she is still has ovaries. Patient has also been dealing with fatigue and cough for the last three weeks. Nothing makes it better, nothing makes it worse. Patient states she has been having some pelvic pain and cramping associated with the vaginal bleeding. Chief Complaint: Vaginal Bleed Time Seen by MD: 21:32 Primary Care Provider: Dr. Love Reviewed Notes: Nurses Notes Allergies: Coded Allergies: NO KNOWN ALLERGIES (Unverified , 11/06/22) Home Meds Active Scripts Methylprednisolone (Medrol Dosepak) 4 Mg Evaristo, 4 MG PO UD, #21 TAB UAD Prov:FAHEEM MEZA MD 12/30/24 Azithromycin (Zithromax) 500 Mg Tab, 1 TAB PO DAILY, #5 TAB Prov:FAHEEM MEZA MD 12/30/24 Cyclobenzaprine Hcl (Cyclobenzaprine Hcl) 10 Mg Tab, 1 TAB PO Q8HPRN PRN, #15 TAB as needed for muscle spasm Prov:TAMMY GARDNERP 10/27/24 Diclofenac Potassium (Diclofenac Potassium) 50 Mg Tab, 1 TAB PO BID PRN, #60 TAB 1 Refill Prov:TAMMY GARDNER 10/27/24 Acetaminophen (Acetaminophen) 500 Mg Tab, 500 MG PO Q4HPRN, #30 TAB 0 Refills Prov:CARA PABLO 07/14/24 Acetaminophen (Acetaminophen) 500 Mg Tab, 500 MG PO Q4HPRN, #30 TAB 0 Refills Prov:CARA PABLO 06/28/24 Methocarbamol (Methocarbamol) 750 Mg Tab, 750 MG PO BID, #20 TAB Prov:RUI HOWELL 02/27/24 Ibuprofen (Ibuprofen) 800 Mg Tab, 1 TAB PO TID, #30 TAB Prov:RUI HOWELL 02/27/24 Ibuprofen Micronized (Ibuprofen) 600 Mg Tab, 1 TAB PO Q6HPRN PRN, #20 TAB as needed for pain Prov:SHARONA MEDINA SENIOR CYBER SECURITY ANALYST 11/21/23 Ibuprofen (Ibuprofen) 800 Mg Tab, 1 TAB PO TID, #30 TAB Prov:RUI HOWELL LAY 08/22/23 Information Source: Patient Mode of Arrival: Ambulatory Past Medical History PAST MEDICAL HISTORY: Anxiety Surgical History: , Hernia Repair, Hysterectomy ASSISTANT DIRECTOR History: No Pertinent ASSISTANT DIRECTOR History Family History Family History: Reviewed,noncontributory to illness, Unknown Social History Smoker: Non-Smoker Alcohol: Denies ETOH Use Drugs: Denies Drug Use Lives In: Home Constitutional: reports: fatigue; denies: chills, diaphoresis, fever, malaise, sweats, weakness, others EENTM: denies: blurred vision, double vision, ear bleeding, ear discharge, ear drainage, ear pain, ear ringing, eye pain, eye redness, hearing loss, mouth pain, mouth swelling, nasal discharge, nose bleeding, nose congestion, nose pain, photophobia, tearing, throat pain, throat swelling, voice changes, others Respiratory: reports: cough; denies: hemoptysis, orthopnea, SOB at rest, shortness of breath, SOB with excertion, stridor, wheezing, others Cardiovascular: denies: chest pain, dizzy spells, diaphoresis, Dyspnea on exertion, edema, irregular heart beat, left arm pain, lightheadedness, pa lpitations, PND, syncope, others Gastrointestinal: denies: abdomen distended, abdominal pain, blood streaked bowels, constipated, diarrhea, dysphagia, difficulty swallowing, hematemesis, melena, nausea, poor appetite, poor fluid intake, rectal bleeding, rectal pain, vomiting, others Genitourinary: reports: abnormal vagina bleeding; denies: burning, dyspareunia, dysuria, flank pain, frequency, hematuria, incontinence, pain, , vagina discharge, urgency, others Neurological: denies: dizziness, fainting, headache, left sided numbness, left sided weakness, numbness, paresthesia, pre-existing deficit, right sided numbness, right sided weakness, seizure, speech problems, tingling, tremors, weakness, others Musculoskeletal: denies: back pain, gout, joint pain, joint swelling, muscle pain, muscle stiffness, neck pain, others Integumetry: denies: bruises, change in color, change in hair/nails, dryness, laceration, lesions, lumps, rash, wounds, others Allergic/Immunocompromised: denies: Difficulty Healing, Frequent Infections, Hives, Itching, others Physical Exam General Appearance: No Apparent Distress, Normal HEENT: Normal ENT Inspection, Pharynx Normal, TMs Normal Neck: Full Range of Motion, Non-Tender, Normal, Normal Inspection Respiratory: Chest Non-Tender, Lungs Clear, No Accessory Muscle Use, No Respiratory Distress, Normal Breath Sounds Cardiovascular: No Edema, No JVD, No Murmur, No Gallop, Normal Peripheral Pulses, Regular Rate/Rhythm Breast Exam: Deferred Gastrointestinal: No Organomegaly, Non Tender, No Pulsatile Mass, Normal Bowel Sounds, Soft Genitalia: Deferred Pelvic: Deferred Rectal: Deferred Extremities: No calf tenderness, Normal capillary refill, Normal inspection, Normal range of motion, Non-tender, No pedal edema Musculoskeletal : Apperance: Normal Neurologic: Alert, courtesy van driver II-XII nml as Tested, No Motor Deficits, Normal Affect, Normal Mood, No Sensory Deficits Cerebellar Function: Normal Reflexes: Normal Skin: Dry, Normal Color, Warm Lymphatic: No Adenopathy Was a procedure done? Was a procedure done?: No Differential Dx Considerations may include: Cervical CA, CVA, UTI pyelonephritis, X-Ray, Labs, Meds, VS Vital Signs Date Time Temp Pulse Resp B/P (MAP) Pulse Ox O2 Delivery O2 Flow Rate FiO2 01/03/25 21:45 97.5 108 18 117/89 (98) 98 97.5 Lab Test 01/03/25 22:09 01/03/25 21:50 Range/Units White Blood Count 8.6 4.4-10.8 10^3/uL Red Blood Count 5.13 4.0-5.20 10^6/uL Hemoglobin 13.5 12.2-16.2 g/dL Hematocrit 40.3 36.0-46.0 % Mean Corpuscular Volume 78.5 L 80.0-100.0 fL Mean Corpuscular Hemoglobin 26.3 L 28.0-32.0 pg Mean Corpuscular Hemoglobin Concent 33.5 32.0-36.0 g/dL Red Cell Distribution Width 13.2 11.8-14.3 % Platelet Count 361 140-450 10^3/uL Mean Platelet Volume 7.6 6.9-10.8 fL Neutrophils (%) (Auto) 77.3 37.0-80.0 % Lymphocytes (%) (Auto) 17.5 10.0-50.0 % Monocytes (%) (Auto) 4.1 0.0-12.0 % Eosinophils (%) (Auto) 0.1 0.0-7.0 % Basophils (%) (Auto) 1.0 0.0-2.0 % Neutrophils # (Auto) 6.7 1.6-8.6 10 ^3/uL Lymphocytes # (Auto) 1.5 0.4-5.4 10 ^3/uL Monocytes # (Auto) 0.3 0-1.3 10 ^3/uL Eosinophils # (Auto) 0 0-0.8 10 ^3/uL Basophils # (Auto) 0.1 0-0.2 10 ^3/uL Nucleated Red Blood Cells 0.1 % Prothrombin Time Pending Prothrombin Time INR Pending Sodium Level 132 L 136-145 mmol/L Potassium Level 4.6 3.5-5.1 mmol/L Chloride Level 98 98-107 mmol/L Carbon Dioxide Level 24 20-31 mmol/L Anion Gap 10 5-15 Blood Urea Nitrogen 20 9-23 mg/dL Creatinine 1.21 H 0.550-1.02 mg/dL Glomerular Filtration Rate Calc 58 >90 mL/min BUN/Creatinine Ratio 16.5 10.0-20.0 Serum Glucose 549 *H 74-106 mg/dL Calcium Level 10.1 8.7-10.4 mg/dL Urine Color Dark-yellow Yellow Urine Clarity Clear Clear Urine pH 5.5 5.0-9.0 Urine Specific [place] 1.032 1.001-1.035 Urine Protein 1+ H Negative Urine Ketones Negative Negative Urine Blood Negative Negative /uL Urine Nitrite Negative Negative Urine Bilirubin Negative Negative Urine Urobilinogen Normal Negative mg/dL Urine Leukocyte Esterase Negative Negative /uL Urine RBC 1 0 - 4 /hpf Urine Microscopic WBC 1 0-5 /HPF Urine Squamous Epithelial Cells Few <5 /hpf Urine Bacteria None seen None Seen /hpf Urine Hyaline Casts Few 0 - 2 /lpf Urine Mucus Few None Seen Urine Glucose 4+ H Normal mg/dL X-Ray, Labs, Meds, VS Comment Imaging: X-rays and CT scans were reviewed and interpreted by this provider, imaging shows no fractures and no pathological disease. Pending radiology review. Laboratory: Labs reviewed and interpreted by this provider. High blood sugar, repeat of the trigger showed 473. Patient has prior medical visits reviewed. Med reconciliation performed Vital signs reviewed Patient will be admitted for hyperglycemia. Time of 1ST Reevaluation: 02:16 Reevaluation 1ST: Improved Patient Education/Counseling: Diagnosis, Treatment Family Education/Counseling: Diagnosis, Treatment Departure 1 Departure Time of Disposition: 01:20 Impression: Primary Impression: Nabothian cyst Additional Impression: Hyperglycemia Disposition: ADMITTED INPATIENT Condition: Stable Critical Care Note Critical Care Time?: No Stability Stability form required: No Heart Score Heart Score: Heart Score Response (Comments) Value History N/A 0 EKG N/A 0 Age N/A 0 Risk Factors N/A 0 Troponin N/A 0 Total 0 [facility] January 04, 2025 01:21
[2025-01-04] MEDS ORDERED: ONDANSETRON HCL 4 MG/2 ML VIAL IV PRN (02:15)
[2025-01-04] MEDS ORDERED: DEXTROSE (50%) 50ML SYRG IV PRN (02:15)
--- NOTE | 2025-01-04 02:19 | DVHHP2 ---
Admitting Diagnosis: New onset DM with hyperglycemia, vaginal bleeding Nabothian cysts History of Present Illness History Source: Patient Exam Limitations: No limitations HPI Mrs. Mihaela Burgess is a 39-year-old female complaining of vaginal bleeding x4 days. States initial day one that has a large clot. States the following days it has been small amounts where she notices blood tinge when wiping. Patient states she had partial hysterectomy done four years ago. Was told she is still has ovaries. Patient has also been dealing with fatigue and cough for the last three weeks. Patient report nausea, vomiting , denies abdominal pain. Patient with glucose level 549. Patient denies any history of diabetes mellitus. Patient does report she hasn't had her blood drawn since 2015. Patient admitted for further evaluation. Home Meds Active Scripts Methylprednisolone (Medrol Dosepak) 4 Mg Evaristo, 4 MG PO UD, #21 TAB UAD Prov:FAHEEM MEZA MD 12/30/24 Azithromycin (Zithromax) 500 Mg Tab, 1 TAB PO DAILY, #5 TAB Prov:FAHEEM MEZA MD 12/30/24 Cyclobenzaprine Hcl (Cyclobenzaprine Hcl) 10 Mg Tab, 1 TAB PO Q8HPRN PRN, #15 TAB as needed for muscle spasm Prov:TAMMY GARDNERP 10/27/24 Diclofenac Potassium (Diclofenac Potassium) 50 Mg Tab, 1 TAB PO BID PRN, #60 TAB 1 Refill Prov:TAMMY GARDNER 10/27/24 Acetaminophen (Acetaminophen) 500 Mg Tab, 500 MG PO Q4HPRN, #30 TAB 0 Refills Prov:CARA PABLO 07/14/24 Acetaminophen (Acetaminophen) 500 Mg Tab, 500 MG PO Q4HPRN, #30 TAB 0 Refills Prov:CARA PABLO 06/28/24 Methocarbamol (Methocarbamol) 750 Mg Tab, 750 MG PO BID, #20 TAB Prov:RUI HOWELL 02/27/24 Ibuprofen (Ibuprofen) 800 Mg Tab, 1 TAB PO TID, #30 TAB Prov:RUI HOWELL 02/27/24 Ibuprofen Micronized (Ibuprofen) 600 Mg Tab, 1 TAB PO Q6HPRN PRN, #20 TAB as needed for pain Prov:SHARONA MEDINA CHAIN MAKER MACHINE 11/21/23 Ibuprofen (Ibuprofen) 800 Mg Tab, 1 TAB PO TID, #30 TAB Prov:LYNDAKODAKJOVanita LAY 08/22/23 Past Medical History Cardiac: No pertinent Hx Pulmonary: No pertinent Hx Central Nervous System: No pertinent Hx GI: No pertinent Hx Hemotology/Oncology: No pertinent Hx Hepatobiliary: No pertinent Hx Psychiatric: Anxiety Musculoskeletal: No pertinent Hx Rheumotologic: No pertinent Hx Infectious Disease: No peritnent Hx ENT: No pertinent Hx Renal/: No pertinent Hx Endocrine: No pertinent Hx Dermatology: No pertinent Hx Past Surgical History: , Hernia repair, Hysterctomy Smoker: No Hx (Negative) Alocohol: None Drugs: None Lives with: With family Domestic Violence: Neg Review of Systems Constitutional: Other (fatigue) All Other Systems vaginal bleeding H&P Exam Vital Signs Vital Signs Date Time Temp Pulse Resp B/P (MAP) Pulse Ox O2 Delivery O2 Flow Rate FiO2 01/03/25 21:45 97.5 108 18 117/89 (98) 98 97.5 General Appeara: Well developed, Well nourished, Normal Appearance Head Exam: Normal inspection Neck Exam: Normal inspection, Non-tender, Normal alignment Eye Exam: bilateral eye Normal inspection, bilateral eye PERRL, bilateral eye EOMI Ear Exam: bilateral ear Auricle normal Nasal Exam: Normal inspection Mouth: Normal Inspection Pulmonary/Respiratory: Normal inspection, Normal breath sounds, Chest non- tender, Lungs clear Cardiovascular/Chest: Normal inspection, Regular rate, Normal Rhythm Peripheral Pulses: 2+ dorsalis pedis (R), 2+ dorsalis pedis (L), 2+ Radial (R), 2+ Radial (L) Abdominal Exam: Normal bowel sounds, Soft, No tenderness Rectal Exam: Deferred PIPE STEM SAWYER Exam: Normal hearing, Normal speech, PERRL Motor/Sensory: Normal sensory function, Normal motor function Neuro/Mental St: Alert, Oriented Appearance: Appropriate appearance, Appropriate insight Eye contact/ Speech: Cooperative, Good eye contact, Normal speech Skin Exam: Normal inspection, Normal color, Warm/dry Labs/Xrays Labs Test 01/03/25 22:09 01/03/25 21:50 Range/Units White Blood Count 8.6 4.4-10.8 10^3/uL Red Blood Count 5.13 4.0-5.20 10^6/uL Hemoglobin 13.5 12.2-16.2 g/dL Hematocrit 40.3 36.0-46.0 % Mean Corpuscular Volume 78.5 L 80.0-100.0 fL Mean Corpuscular Hemoglobin 26.3 L 28.0-32.0 pg Mean Corpuscular Hemoglobin Concent 33.5 32.0-36.0 g/dL Red Cell Distribution Width 13.2 11.8-14.3 % Platelet Count 361 140-450 10^3/uL Mean Platelet Volume 7.6 6.9-10.8 fL Neutrophils (%) (Auto) 77.3 37.0-80.0 % Lymphocytes (%) (Auto) 17.5 10.0-50.0 % Monocytes (%) (Auto) 4.1 0.0-12.0 % Eosinophils (%) (Auto) 0.1 0.0-7.0 % Basophils (%) (Auto) 1.0 0.0-2.0 % Neutrophils # (Auto) 6.7 1.6-8.6 10 ^3/uL Lymphocytes # (Auto) 1.5 0.4-5.4 10 ^3/uL Monocytes # (Auto) 0.3 0-1.3 10 ^3/uL Eosinophils # (Auto) 0 0-0.8 10 ^3/uL Basophils # (Auto) 0.1 0-0.2 10 ^3/uL Nucleated Red Blood Cells 0.1 % Sodium Level 132 L 136-145 mmol/L Potassium Level 4.6 3.5-5.1 mmol/L Chloride Level 98 98-107 mmol/L Carbon Dioxide Level 24 20-31 mmol/L Anion Gap 10 5-15 Blood Urea Nitrogen 20 9-23 mg/dL Creatinine 1.21 H 0.550-1.02 mg/dL Glomerular Filtration Rate Calc 58 >90 mL/min BUN/Creatinine Ratio 16.5 10.0-20.0 Serum Glucose 549 *H 74-106 mg/dL Calcium Level 10.1 8.7-10.4 mg/dL Urine Color Dark-yellow Yellow Urine Clarity Clear Clear Urine pH 5.5 5.0-9.0 Urine Specific [place] 1.032 1.001-1.035 Urine Protein 1+ H Negative Urine Ketones Negative Negative Urine Blood Negative Negative /uL Urine Nitrite Negative Negative Urine Bilirubin Negative Negative Urine Urobilinogen Normal Negative mg/dL Urine Leukocyte Esterase Negative Negative /uL Urine RBC 1 0 - 4 /hpf Urine Microscopic WBC 1 0-5 /HPF Urine Squamous Epithelial Cells Few <5 /hpf Urine Bacteria None seen None Seen /hpf Urine Hyaline Casts Few 0 - 2 /lpf Urine Mucus Few None Seen Urine Glucose 4+ H Normal mg/dL Assessment/Plan Problem List: (1) Hyperglycemia (2) Nabothian cyst Plan This is a 39 yo female with known history of anxiety, c section, hysterectomy, hernia repair who presents with fatigue , vaginal bleeding x 4 days. Patient found to have 1. new onset DM with hyperglycemia 2. Nabothian cysts, vaginal bleeding 3. hx Anxiety Plan: Admit Med Surgical unit OBGYN consultation Diabetic education nurse referral Accucheck ac & hs coverage with insulin ss IV fluids NS GI ppx Pepcid DVT ppx Lovenox Monitor BMP, CBC Discussed all above with patient who verbalizes agreement and understanding of care plan. All questions were answered. Discussed assessment and care plan with supervising MD. Plan discussed with: Patient, Other Code Visit Code Visit Total Time (mins): 45 Additional Comments Additional Comments Additional Comments I AGREE WITH THE ASSESSMENT AND PLAN OUTLINED BY MY NURSE PRACTITIONER. JAVY BARRETT January 04, 2025 02:19 VITALIY RAMOS MD January 04, 2025 16:39
[2025-01-04 02:27] LABS: INR 0.94 (0.9-1.15)
[2025-01-04] MEDS: KETOROLAC TROMETH 30 MG/ML 1ML VIAL IM ONE (04:40)
[2025-01-04] MEDS: DexAMETHasone SOD PHOS 10MG/1ML VIAL INJ IM ONE (04:40)
[2025-01-04 04:41] VITALS: PULSE 78; RESP 16; O2SAT 97
--- NOTE | 2025-01-04 06:00 | DVH ---
CHEST RADIOGRAPH Indication: admission,cough Technique: Single frontal view of the chest was obtained COMPARISON: None FINDINGS: Lines and Tubes: None Lungs: Clear Pleura: No effusion. No pneumothorax. Cardiomediastinal contours: Unremarkable Bones: Unremarkable IMPRESSION: No acute disease.
[2025-01-04] MEDS: SODIUM CHLORIDE 0.9% 1,000 ML IV SCH (06:14)
[2025-01-04 06:47] LABS: Eosinophils # (auto) 0 10 ^3/uL (0-0.8); Hemoglobin 13.4 g/dL (12.2-16.2)
[2025-01-04 06:49] LABS: Basophils # (auto) 0.1 10 ^3/uL (0-0.2); Basophils % (auto) 0.9 % (0.0-2.0); Eosinophils % (auto) 0.1 % (0.0-7.0); Hematocrit 39.3 % (36.0-46.0); Lymphocytes # (auto) 1.5 10 ^3/uL (0.4-5.4); Lymphocytes % (auto) 18.5 % (10.0-50.0); Mean Corpuscular Hemoglobin 26.5 pg (28.0-32.0); Mean Corpuscular Hgb Conc. 34.1 g/dL (32.0-36.0); Mean Corpuscular Volume 77.8 fL (80.0-100.0); Monocytes # (auto) 0.3 10 ^3/uL (0-1.3); Monocytes % (auto) 3.2 % (0.0-12.0); Neutrophils # (auto) 6.5 10 ^3/uL (1.6-8.6); Neutrophils % (auto) 77.3 % (37.0-80.0); Platelet Count (auto) 378 10^3/uL (140-450); Red Blood Cells 5.06 10^6/uL (4.0-5.20); Red Cell Distribution Width 13.4 % (11.8-14.3); White Blood Cell 8.4 10^3/uL (4.4-10.8)
[2025-01-04 07:20] LABS: Potassium 4.7 mmol/L (3.5-5.1)
[2025-01-04 07:21] LABS: Anion Gap 9 (5-15); Carbon Dioxide 25 mmol/L (20-31)
[2025-01-04 07:26] LABS: BUN/Creatinine Ratio 20.6 (10.0-20.0)
[2025-01-04 07:37] LABS: Blood Urea Nitrogen 28 mg/dL (9-23); Calcium 10.8 mg/dL (8.7-10.4); Chloride 96 mmol/L (98-107); Sodium 130 mmol/L (136-145)
[2025-01-04 07:39] LABS: Glucose 563 mg/dL (74-106)
[2025-01-04] MEDS: ACCU-CHEK COMFORT CURVE STRIP VI SCH (09:43)
[2025-01-04] MEDS: ENOXAPARIN SOD 40 MG/0.4 ML SYRINGE SC SCH (09:55)
[2025-01-04] MEDS: FAMOTIDINE 20 MG TAB PO SCH (09:55)
[2025-01-04] MEDS: InsuLIN REG 1unit/0.01ml Soln (100units/ml) SC SCH (09:56)
--- NOTE | 2025-01-04 10:24 | DVHINCON2 ---
Date of service: January 04, 2025 Referring Physician hospitalist Reason for Consultation vag bleeding History of Present Illness pt is admitted for new onset dm ,she c/o vag bleeding however she had hyst about 4 yrs ago. sono confirms absence of uterus . Past Medical History anxiety ,new onset dm Past Surgical History cs ,hysterectomy Family History na Social History 2cs Allergies: Coded Allergies: NO KNOWN ALLERGIES (Unverified , 11/06/22) Home Meds Active Scripts Methylprednisolone (Medrol Dosepak) 4 Mg Evaristo, 4 MG PO UD, #21 TAB UAD Prov:FAHEEM MEZA MD 12/30/24 Azithromycin (Zithromax) 500 Mg Tab, 1 TAB PO DAILY, #5 TAB Prov:FAHEEM MEZA MD 12/30/24 Cyclobenzaprine Hcl (Cyclobenzaprine Hcl) 10 Mg Tab, 1 TAB PO Q8HPRN PRN, #15 TAB as needed for muscle spasm Prov:TAMMY GARDNERP 10/27/24 Diclofenac Potassium (Diclofenac Potassium) 50 Mg Tab, 1 TAB PO BID PRN, #60 TAB 1 Refill Prov:TAMMY GARDNER 10/27/24 Acetaminophen (Acetaminophen) 500 Mg Tab, 500 MG PO Q4HPRN, #30 TAB 0 Refills Prov:CARA PABLO 07/14/24 Acetaminophen (Acetaminophen) 500 Mg Tab, 500 MG PO Q4HPRN, #30 TAB 0 Refills Prov:CARA PABLO 06/28/24 Methocarbamol (Methocarbamol) 750 Mg Tab, 750 MG PO BID, #20 TAB Prov:RUI HOWELL 02/27/24 Ibuprofen (Ibuprofen) 800 Mg Tab, 1 TAB PO TID, #30 TAB Prov:RUI HOWELL 02/27/24 Ibuprofen Micronized (Ibuprofen) 600 Mg Tab, 1 TAB PO Q6HPRN PRN, #20 TAB as needed for pain Prov:SHARONA MEDINA PRIVATE DUTY RN 11/21/23 Ibuprofen (Ibuprofen) 800 Mg Tab, 1 TAB PO TID, #30 TAB Prov:RUI HOWELL 08/22/23 Current Medications Current Medications Medications (Trade) Dose Ordered Sig/Timur Route PRN Reason Start Time Stop Time Status Last Admin Sodium Chloride 1,000 ml @ 100 mls/hr Q10H IV 01/04/25 02:15 Ondansetron HCl (Zofran) 4 mg Q6HPRN PRN IV NAUSEA / VOMITING 01/04/25 02:15 Acetaminophen (Tylenol Tablet) 650 mg Q6HPRN PRN PO PAIN SCALE 1-3 OR TEMP>100.4 01/04/25 02:15 Famotidine (Pepcid Tablet) 20 mg BID PO 01/04/25 10:00 01/04/25 09:55 Enoxaparin Sodium (Lovenox) 40 mg DAILY SC 01/04/25 10:00 01/04/25 09:55 Diagnostic Test (Pha) (Accu-Chek Comfort Curve T) 1 strip ACHS 01/04/25 07:00 01/04/25 09:43 Insulin Human Regular (InsuLIN R) ACHS SC 01/04/25 07:00 01/04/25 09:56 Dextrose 50 ml UD PRN IV Blood Sugar LESS THAN 60 01/04/25 02:15 Review of Systems Constitutional: no fever, chill, weight loss HEENT: no eye pain, no hearing loss, no oral lesion, no scleral icterus Heart: no chest pain, no chest pressure Lung: no cough, no dyspnea with exertion Abdomen: see HPI : no pain with urination, normal appearing urine Musculoskeletal: no joint pain, no muscle pain Neurological: no seizure, no loss of sensation, no weakness in extremities Pysch: no depression, no anxiety Derm: no rash, no jaundice Vital Signs Vital Signs Date Time Temp Pulse Resp B/P (MAP) Pulse Ox O2 Delivery O2 Flow Rate FiO2 01/04/25 10:05 Room Air* 0 21 01/04/25 10:05 97.9 94 16 121/73 (89) 95 97.9 Physical Exam SKIN: [nl] HEENT: [nl] NECK: [nl] CARDIAC: [rrr] PULMONARY: [cta] ABDOMEN: [soft,,nt pelvic- vag no bleeding,cx nl no bleeding,uterus absent ext -nl Labs/Diagnostic Data Labs Test 01/04/25 09:42 01/04/25 06:30 01/03/25 22:09 01/03/25 21:50 Range/Units POC Glucose > 600 *H 70-106 mg/dl White Blood Count 8.4 4.4-10.8 10^3/uL Red Blood Count 5.06 4.0-5.20 10^6/uL Hemoglobin 13.4 12.2-16.2 g/dL Hematocrit 39.3 36.0-46.0 % Mean Corpuscular Volume 77.8 L 80.0-100.0 fL Mean Corpuscular Hemoglobin 26.5 L 28.0-32.0 pg Mean Corpuscular Hemoglobin Concent 34.1 32.0-36.0 g/dL Red Cell Distribution Width 13.4 11.8-14.3 % Platelet Count 378 140-450 10^3/uL Mean Platelet Volume 7.3 6.9-10.8 fL Neutrophils (%) (Auto) 77.3 37.0-80.0 % Lymphocytes (%) (Auto) 18.5 10.0-50.0 % Monocytes (%) (Auto) 3.2 0.0-12.0 % Eosinophils (%) (Auto) 0.1 0.0-7.0 % Basophils (%) (Auto) 0.9 0.0-2.0 % Neutrophils # (Auto) 6.5 1.6-8.6 10 ^3/uL Lymphocytes # (Auto) 1.5 0.4-5.4 10 ^3/uL Monocytes # (Auto) 0.3 0-1.3 10 ^3/uL Eosinophils # (Auto) 0 0-0.8 10 ^3/uL Basophils # (Auto) 0.1 0-0.2 10 ^3/uL Nucleated Red Blood Cells 0.0 % Sodium Level 130 L 136-145 mmol/L Potassium Level 4.7 3.5-5.1 mmol/L Chloride Level 96 L 98-107 mmol/L Carbon Dioxide Level 25 20-31 mmol/L Anion Gap 9 5-15 Blood Urea Nitrogen 28 H 9-23 mg/dL Creatinine 1.36 H 0.550-1.02 mg/dL Glomerular Filtration Rate Calc 51 >90 mL/min BUN/Creatinine Ratio 20.6 H 10.0-20.0 Serum Glucose 563 *H 74-106 mg/dL Hemoglobin A1c 13.2 H <5.7 % A1C Calcium Level 10.8 H 8.7-10.4 mg/dL Prothrombin Time 10.0 9.3-11.8 sec Prothrombin Time INR 0.94 0.9-1.15 Urine Color Dark-yellow Yellow Urine Clarity Clear Clear Urine pH 5.5 5.0-9.0 Urine Specific [place] 1.032 1.001-1.035 Urine Protein 1+ H Negative Urine Ketones Negative Negative Urine Blood Negative Negative /uL Urine Nitrite Negative Negative Urine Bilirubin Negative Negative Urine Urobilinogen Normal Negative mg/dL Urine Leukocyte Esterase Negative Negative /uL Urine RBC 1 0 - 4 /hpf Urine Microscopic WBC 1 0-5 /HPF Urine Squamous Epithelial Cells Few <5 /hpf Urine Bacteria None seen None Seen /hpf Urine Hyaline Casts Few 0 - 2 /lpf Urine Mucus Few None Seen Urine Glucose 4+ H Normal mg/dL Primary Diagnosis new onset dm 2' Diagnosis/Comorbidities vag bleeding ruled out -no evidence of vag bleeding Plan fu oiut pt for pap ,with cx in place pt may have scant spotting at times not the current hx given by pt.please rule out rectal bleeding or other sources of gi relaTED BLEEDING. WILL SIGN OFF THANK YOU FOR THIS CONSULTATIONB Plan discussed with: Patient Visit Coding OBGYN Date of Service: January 04, 2025 Billing Provider: GENIE MYERS DO GRID CASTING MACHINE OPERATOR HELPER Common Visit Codes: [id number] INP/OBS CARE (HIGH) GRID CASTING MACHINE OPERATOR HELPER Consultation Codes: 51928-[id number] CONSULT <80MIN GENIE MYERS DO January 04, 2025 10:24
[2025-01-04 13:51] LABS: Chloride 99 mmol/L (98-107); Potassium 4.9 mmol/L (3.5-5.1)
[2025-01-04 13:52] LABS: Anion Gap 12 (5-15); Calcium 10.9 mg/dL (8.7-10.4); Carbon Dioxide 21 mmol/L (20-31); Sodium 132 mmol/L (136-145)
[2025-01-04 13:57] LABS: BUN/Creatinine Ratio 27.6 (10.0-20.0)
[2025-01-04 14:02] LABS: Blood Urea Nitrogen 34 mg/dL (9-23)
[2025-01-04 14:04] LABS: Glucose 566 mg/dL (74-106)
[2025-01-04 21:00] VITALS: BP 125/84; PULSE 93; RESP 20; TEMP 98; O2SAT 98
[2025-01-04] MEDS: INSULIN LANTUS (GLARGINE) 1 /0.01ml (100units/ml) SC SCH (22:50)
[2025-01-05 01:00] VITALS: BP 120/74; PULSE 89; RESP 18; TEMP 98
[2025-01-05 05:00] VITALS: BP 134/87; PULSE 91; RESP 16; TEMP 97.8; O2SAT 98
[2025-01-05 06:26] LABS: Eosinophils # (auto) 0 10 ^3/uL (0-0.8); Eosinophils % (auto) 0.3 % (0.0-7.0)
[2025-01-05 06:32] LABS: Basophils # (auto) 0.1 10 ^3/uL (0-0.2); Basophils % (auto) 0.5 % (0.0-2.0); Hematocrit 37.8 % (36.0-46.0); Hemoglobin 12.7 g/dL (12.2-16.2); Lymphocytes # (auto) 3.5 10 ^3/uL (0.4-5.4); Lymphocytes % (auto) 35.2 % (10.0-50.0); Mean Corpuscular Hemoglobin 26.1 pg (28.0-32.0); Mean Corpuscular Hgb Conc. 33.7 g/dL (32.0-36.0); Mean Corpuscular Volume 77.4 fL (80.0-100.0); Monocytes # (auto) 0.6 10 ^3/uL (0-1.3); Monocytes % (auto) 6.3 % (0.0-12.0); Neutrophils # (auto) 5.7 10 ^3/uL (1.6-8.6); Neutrophils % (auto) 57.7 % (37.0-80.0); Nucleated Red Blood Cells % 0.2 %; Platelet Count (auto) 349 10^3/uL (140-450); Red Blood Cells 4.88 10^6/uL (4.0-5.20); White Blood Cell 9.9 10^3/uL (4.4-10.8)
[2025-01-05 06:43] LABS: Anion Gap 11 (5-15); Carbon Dioxide 22 mmol/L (20-31); Chloride 105 mmol/L (98-107); Sodium 138 mmol/L (136-145)
[2025-01-05 06:45] LABS: Calcium 8.7 mg/dL (8.7-10.4)
[2025-01-05 06:49] LABS: BUN/Creatinine Ratio 23.2 (10.0-20.0); Blood Urea Nitrogen 19 mg/dL (9-23)
[2025-01-05 06:51] LABS: Glucose 311 mg/dL (74-106)
[2025-01-05 08:00] VITALS: PULSE 92; RESP 18; O2SAT 96
[2025-01-05 09:00] VITALS: BP 114/70; PULSE 91; RESP 19; TEMP 98.4; O2SAT 96
[2025-01-05 10:10] LABS: Hepatitis B Surface Antigen Negative (Negative)
[2025-01-05 10:27] LABS: Hepatitis C Antibody Negative (Negative)
[2025-01-05] MEDS ORDERED: LANC-347 XX (11:41)
[2025-01-05] MEDS ORDERED: METF-370 PO (11:41)
[2025-01-05] MEDS ORDERED: INSU-567 XX (11:41)
[2025-01-05] MEDS ORDERED: BLOO1KIT60 XX (11:41)
[2025-01-05] MEDS ORDERED: SITA50TA PO (11:41)
[2025-01-05] MEDS ORDERED: INSLANTI SC (11:41)
[2025-01-05 12:37] VITALS: BP 115/86; PULSE 90; RESP 18; TEMP 98.4; O2SAT 96
[2025-01-05] MEDS: ACETAMINOPHEN 325 MG TAB PO PRN (13:41)
--- NOTE | 2025-01-05 14:54 | DVHDS2 ---
Discharge Summary Date of Admission January 04, 2025 at 02:08 Date of Discharge: January 05, 2025 Labs/Diagnostic Data: Laboratory Results Test 01/05/25 12:52 01/05/25 05:42 01/04/25 06:30 01/03/25 22:09 POC Glucose 207 mg/dl (70-106) White Blood Count 9.9 10^3/uL (4.4-10.8) Red Blood Count 4.88 10^6/uL (4.0-5.20) Hemoglobin 12.7 g/dL (12.2-16.2) Hematocrit 37.8 % (36.0-46.0) Mean Corpuscular Volume 77.4 fL (80.0-100.0) Mean Corpuscular Hemoglobin 26.1 pg (28.0-32.0) Mean Corpuscular Hemoglobin Concent 33.7 g/dL (32.0-36.0) Red Cell Distribution Width 13.0 % (11.8-14.3) Platelet Count 349 10^3/uL (140-450) Mean Platelet Volume 7.3 fL (6.9-10.8) Neutrophils (%) (Auto) 57.7 % (37.0-80.0) Lymphocytes (%) (Auto) 35.2 % (10.0-50.0) Monocytes (%) (Auto) 6.3 % (0.0-12.0) Eosinophils (%) (Auto) 0.3 % (0.0-7.0) Basophils (%) (Auto) 0.5 % (0.0-2.0) Neutrophils # (Auto) 5.7 10 ^3/uL (1.6-8.6) Lymphocytes # (Auto) 3.5 10 ^3/uL (0.4-5.4) Monocytes # (Auto) 0.6 10 ^3/uL (0-1.3) Eosinophils # (Auto) 0 10 ^3/uL (0-0.8) Basophils # (Auto) 0.1 10 ^3/uL (0-0.2) Nucleated Red Blood Cells 0.2 % Sodium Level 138 mmol/L (136-145) Potassium Level 4.0 mmol/L (3.5-5.1) Chloride Level 105 mmol/L (98-107) Carbon Dioxide Level 22 mmol/L (20-31) Anion Gap 11 (5-15) Blood Urea Nitrogen 19 mg/dL (9-23) Creatinine 0.82 mg/dL (0.550-1.02) Glomerular Filtration Rate Calc 93 mL/min (>90) BUN/Creatinine Ratio 23.2 (10.0-20.0) Serum Glucose 311 mg/dL (74-106) Calcium Level 8.7 mg/dL (8.7-10.4) Hepatitis B Surface Antigen Negative (Negative) Hepatitis C Antibody Negative (Negative) Hemoglobin A1c 13.2 % A1C (<5.7) B-Type Natriuretic Peptide 10.47 pg/mL (0-100) Prothrombin Time 10.0 sec (9.3-11.8) Prothrombin Time INR 0.94 (0.9-1.15) Test 01/03/25 21:50 Urine Color Dark-yellow (Yellow) Urine Clarity Clear (Clear) Urine pH 5.5 (5.0-9.0) Urine Specific Beryl 1.032 (1.001-1.035) Urine Protein 1+ (Negative) Urine Ketones Negative (Negative) Urine Blood Negative /uL (Negative) Urine Nitrite Negative (Negative) Urine Bilirubin Negative (Negative) Urine Urobilinogen Normal mg/dL (Negative) Urine Leukocyte Esterase Negative /uL (Negative) Urine RBC 1 /hpf (0 - 4) Urine Microscopic WBC 1 /HPF (0-5) Urine Squamous Epithelial Cells Few /hpf (<5) Urine Bacteria None seen /hpf (None Seen) Urine Hyaline Casts Few /lpf (0 - 2) Urine Mucus Few (None Seen) Urine Glucose 4+ mg/dL (Normal) Other Laboratory Tests 01/05/25 05:42 Brief Hx & Hospital Course: 39-year-old female with a no significant past medical history presented to the hospital with a vaginal bleeding. Eventually patient was seen by Gynecology. Patient was cleared to be discharged. Patient was found to have hyperglycemia with a new onset of diabetes mellitus type 2 with a hemoglobin A1c more than 13. Patient was started on insulin currently blood sugars are stable patient can be discharged home with close follow up as an outpatient with the PCP and endocrinology. Condition at Discharge: Stable Final Diagnosis/Problems List 1. Hyperglycemia in the setting of new onset of diabetes mellitus type 2 2. Vaginal bleeding 3. Nabothian cysts Discharge Disposition: Home SNF Discharge Will this Physician continue t: No Discharge Instruct/Medications Diet: Cardiac 2g Na,low cholest Activity: No Restrictions, As Tolerated Follow Up/Referral: Follow up with the PCP in 1-2 weeks Follow up with the endocrinology for new onset of diabetes type 2 in 1-2 weeks Medications: Januvia, metformin, insulin Lantus Discharge Statement: "Patient was advised to return to the ER or call 911 if any headaches, dizziness, shortness of breath, chest pain, abdominal pain, bleeding, fevers, or worsening of medical condition. Patient was counseled about treatment plan, medications, possible side effects, patientverbalized understanding. All questions were answered to the best of my ability. This discharge took greater then 30 minutes in planning, reviewing documentation, counseling the patient, and discussing with other team members." ASSESSMENT ASSESSMENT Assessment 1. Hyperglycemia in the setting of new onset of diabetes mellitus type 2 2. Vaginal bleeding 3. Nabothian cysts Date of Service: January 05, 2025 Billing Provider: VITALIY RAMOS MD Common Visit Codes: NOT BILLABLE VITALIY RAMOS MD January 05, 2025 14:54
== END 2025-01-05 14:37 | disposition home or self-care (01) | DRG 761 ==
LOC: ER 21:29 → OVERFLOW 01-04 02:08 → EAST 01-05 04:04
PROVIDERS: ADMIT Nurse Practitioner Family; ATTEND Nurse Practitioner Family
DX: N88.8 Other specified noninflammatory disorders of cervix uteri (principal); E11.65 Type 2 diabetes mellitus with hyperglycemia; N93.9 Abnormal uterine and vaginal bleeding, unspecified; F41.9 Anxiety disorder, unspecified; Z90.711 Acquired absence of uterus with remaining cervical stump; Z79.1 Long term (current) use of non-steroidal anti-inflammatories (NSAID); Z79.899 Other long term (current) drug therapy; Z87.891 Personal history of nicotine dependence
CPT/HCPCS: 36415; 71045; 76830; 76856; 80048; 81001; 82962; 83036; 83880; 85025; 85610; 86803; 87340; 96372; G0378; J1100; J1815; J1885

== ENCOUNTER 2025-01-27 20:59 | Emergency (ER) | payer OTHER ==
[~2025-01-27] VITALS: Ht 157.5 cm; Wt 73.7 kg
[~2025-01-27 20:59] MED LIST changes: -ACET500T58 PO; -AZIT500T PO; +BLOO1KIT60 XX; -CYCL-839 PO; -DICL50TA2 PO; -IBUP-1456 PO; -IBUP1TAB5 PO; +INSLANTI SC; +INSU-567 XX; +LANC-347 XX; +METF-370 PO; -METH-1182 PO; -METH4PAK PO; +SITA50TA PO
[2025-01-28] MEDS ORDERED: FLUT250M2 INH (00:23)
--- NOTE | 2025-01-28 00:24 | ED.PDOC ---
SOB-HPI HPI Comments C/C of cough x2 months. Pt states she was seen 12/30 and 01/03, and was dx with bronchitis and prescriptions given did not help. PT still has lingering, non-productive, dry cough. VSS. NKDA. Denies PMH. Chief Complaint: Cough Time Seen by MD: 21:35 Primary Care Provider: Dr. Love Reviewed notes: Nurses Notes, Medications, Allergies Information Source: Patient Mode of Arrival: Ambulatory Past Medical History PAST MEDICAL HISTORY: Anxiety Surgical History: , Hernia Repair, Hysterectomy LASTING ROOM SUPERVISOR History: No Pertinent LASTING ROOM SUPERVISOR History Family History Family History: Reviewed,noncontributory to illness, Unknown Social History Smoker: Non-Smoker Alcohol: Denies ETOH Use Drugs: Denies Drug Use Lives In: Home Constitutional: denies: chills, diaphoresis, fatigue, fever, malaise, sweats, weakness, others EENTM: denies: blurred vision, double vision, ear bleeding, ear discharge, ear drainage, ear pain, ear ringing, eye pain, eye redness, hearing loss, mouth pain, mouth swelling, nasal discharge, nose bleeding, nose congestion, nose pain, photophobia, tearing, throat pain, throat swelling, voice changes, others Respiratory: reports: cough; denies: hemoptysis, orthopnea, SOB at rest, shortness of breath, SOB with excertion, stridor, wheezing, others Cardiovascular: denies: chest pain, dizzy spells, diaphoresis, Dyspnea on exertion, edema, irregular heart beat, left arm pain, lightheadedness, pal pitations, PND, syncope, others Gastrointestinal: denies: abdomen distended, abdominal pain, blood streaked bowels, constipated, diarrhea, dysphagia, difficulty swallowing, hematemesis, melena, nausea, poor appetite, poor fluid intake, rectal bleeding, rectal pain, vomiting, others Genitourinary: denies: abnormal vagina bleeding, burning, dyspareunia, dysuria, flank pain, frequency, hematuria, incontinence, pain, , vagina discharge, urgency, others Neurological: denies: dizziness, fainting, headache, left sided numbness, left sided weakness, numbness, paresthesia, pre-existing deficit, right sided numbness, right sided weakness, seizure, speech problems, tingling, tremors, weakness, others Musculoskeletal: denies: back pain, gout, joint pain, joint swelling, muscle pain, muscle stiffness, neck pain, others Integumetry: denies: bruises, change in color, change in hair/nails, dryness, laceration, lesions, lumps, rash, wounds, others Allergic/Immunocompromised: denies: Difficulty Healing, Frequent Infections, Hives, Itching, others Hematologic/Lymphatic: denies: anemia, blood clots, easy bleeding, easy b ruising, swollen glands, others Endocrine: denies: excessive hunger, excessive sweating, excessive thirst, excessive urination, flushing, intolerance to cold, intolerance to heat, unexplained weight gain, unexplained weight loss, others Psychiatric: reports: anxiety; denies: bipolar disorder, depression, hopeless, panic disorder, schizophrenia, sleepless, suicidal, others Physical Exam General Appearance: No Apparent Distress, Normal HEENT: Normal ENT Inspection, Pharynx Normal, TMs Normal Neck: Full Range of Motion, Non-Tender Respiratory: Chest Non-Tender, Lungs Clear, No Accessory Muscle Use, No Respiratory Distress, Normal Breath Sounds Cardiovascular: No Edema, No JVD, No Murmur, No Gallop, Normal Peripheral Pulses, Regular Rate/Rhythm Breast Exam: Deferred Gastrointestinal: No Organomegaly, Non Tender, No Pulsatile Mass, Normal Bowel Sounds, Soft Genitalia: Deferred Pelvic: Deferred Rectal: Deferred Extremities: Normal capillary refill, Normal inspection, Normal range of motion, Non-tender, No pedal edema Musculoskeletal : Apperance: Normal Neurologic: Alert, No Motor Deficits, Normal Affect, Normal Mood, No Sensory Deficits Cerebellar Function: Normal Reflexes: Normal Skin: Dry, Normal Color, Warm Lymphatic: No Adenopathy Was a procedure done? Was a procedure done?: No Differential Dx Differential Diagnosis: Anxiety, Asthma, Panic Attack, Pneumonia, Sinusitis, Peritonsillar Abscess, Pharyngitis, URI X-Ray, Labs, Meds, VS Vital Signs Date Time Temp Pulse Resp B/P (MAP) Pulse Ox O2 Delivery O2 Flow Rate FiO2 01/27/25 20:59 98.2 106 17 129/83 (98) 96 98.2 X-Ray, Labs, Meds, VS Comment Trial Advair twice daily times 10 days advised to follow up with her PCP in 2-3 days consider further workup for chronic cough. Trial of BuSpar for anxiety advised not to drive while taking medication or operate heavy machinery advised to follow up with her PCP in 2 days consider referral to Psychology for CBT. Return precautions given patient indicates understanding agrees with discharge plan of care Time of 1ST Reevaluation: 00:20 Reevaluation 1ST: Improved Patient Education/Counseling: Diagnosis, Treatment, Prognosis, Need For Follow Up Family Education/Counseling: Diagnosis, Treatment, Prognosis, Need For Follow Up Departure 1 Departure Time of Disposition: 00:22 Impression: Primary Impression: Acute bronchitis Qualified Codes: J20.9 - Acute bronchitis, unspecified Disposition: HOME / SELF CARE / HOMELESS Condition: Stable e-Prescriptions Buspirone Hcl (Buspirone Hcl) 5 Mg Tab 1 TAB PO BID PRN for 7 Days, #14 TAB Prov: ERIC CARMONA 01/28/25 Fluticasone-Salmeterol (Advair Diskus 250/50) 1 Puff Ih 1 PUFF INH BID for 10 Days, #1 INHALER Prov: ERIC CARMONA 01/28/25 Discharged With: Self Critical Care Note Critical Care Time?: No Stability Stability form required: No Heart Score Heart Score: Heart Score Response (Comments) Value History N/A 0 EKG N/A 0 Age <45 0 Risk Factors N/A 0 Troponin N/A 0 Total 0 ERIC CARMONA Jan 28, 2025 00:24
[2025-01-28] MEDS ORDERED: BUSP5TAB51 PO (01:14)
[2025-01-28 01:55] VITALS: BP 129/83; PULSE 100; RESP 17; TEMP 98.2; O2SAT 96
== END 2025-01-28 01:56 | disposition home or self-care (01) ==
LOC: ER 21:03
DX: J20.9 Acute bronchitis, unspecified (principal); Z98.890 Other specified postprocedural states; Z90.710 Acquired absence of both cervix and uterus

== ENCOUNTER 2025-04-17 15:45 | Emergency (ER) | payer OTHER ==
[~2025-04-17] VITALS: Ht 157.5 cm; Wt 70.7 kg
--- NOTE | 2025-04-17 16:55 | ED.PDOC ---
History of Present Illness HPI Comments 39-year-old female presents to the ER with a prior medical history of anxiety: Surgical history of , hernia repair, hysterectomy and the chief complaint of eye pain. Patient reports on having right eye pain pulsating for the past three days. Denies anything going in her eye or any discharge from her eye.. Right eye 20/40 Left eye 20/20 Chief Complaint: Eye Problem Time Seen by MD: 16:50 Primary Care Provider: Dr. Love Reviewed Notes: Nurses Notes, Medications, Allergies Allergies: Coded Allergies: NO KNOWN ALLERGIES (Unverified , 11/06/22) Home Meds Active Scripts Lancets (Freestyle Lancets) Lancets Mis, BOX XX, #1 Prov:VITALIY RAMOS MD 01/05/25 Blood Glucose Monitoring Suppl (D-Care Glucometer Kit/Glu W/Device) 1 Kit Kit, KIT XX, #1 Prov:VITALIY RAMOS MD 01/05/25 Insulin Syringe/Needle U-100 (ADVOCATE INSULIN SYRINGE/) 0.5 Mg/31 G Mis, MG XX, #30 Prov:VITALIY RAMOS MD 01/05/25 Metformin Hydrochloride (Metformin Hcl) 500 Mg Tab, 1 TAB PO BID, #60 TAB 3 Refills Prov:VITALIY RAMOS MD 01/05/25 Sitagliptin Phosphate (Januvia) 50 Mg Tab, 1 TAB PO DAILY, #30 TAB 5 Refills Prov:VITALIY RAMOS MD 01/05/25 Insulin Glargine (Lantus) 100 Unit/Ml Inj, 20 UNITS SC HS for 30 Days, #30 INJ Prov:VITALIY RAMOS MD 01/05/25 Information Source: Patient Mode of Arrival: Ambulatory Severity: Moderate Timing: Days Duration: Since onset, Days Prehospital treatment: None Past Medical History PAST MEDICAL HISTORY: Anxiety Surgical History: , Hernia Repair, Hysterectomy PATIENT CARE DIRECTOR History: No Pertinent PATIENT CARE DIRECTOR History Family History Family History: Reviewed,noncontributory to illness, Unknown Social History Smoker: Non-Smoker Alcohol: Denies ETOH Use Drugs: Denies Drug Use Lives In: Home Constitutional: denies: chills, diaphoresis, fatigue, fever, malaise, sweats, weakness, others EENTM: reports: blurred vision, eye pain, eye redness; denies: double vision, ear bleeding, ear discharge, ear drainage, ear pain, ear ringing, hearing loss, mouth pain, mouth swelling, nasal discharge, nose bleeding, nose congestion, nose pain, photophobia, tearing, throat pain, throat swelling, voice changes, others Respiratory: denies: cough, hemoptysis, orthopnea, SOB at rest, shortness of breath, SOB with excertion, stridor, wheezing, others Cardiovascular: denies: chest pain, dizzy spells, diaphoresis, Dyspnea on exertion, edema, irregular heart beat, left arm pain, lightheadedness, palpitations, PND, syncope, others Gastrointestinal: denies: abdomen distended, abdominal pain, blood streaked bowels, constipated, diarrhea, dysphagia, difficulty swallowing, hematemesis, melena, nausea, poor appetite, poor fluid intake, rectal bleeding, rectal pain, vomiting, others Genitourinary: denies: abnormal vagina bleeding, burning, dyspareunia, dysuria, flank pain, frequency, hematuria, incontinence, pain, , vagina discharge, urgency, others Neurological: denies: dizziness, fainting, headache, left sided numbness, left sided weakness, numbness, paresthesia, pre-existing deficit, right sided numbness, right sided weakness, seizure, speech problems, tingling, tremors, weakness, others Musculoskeletal: denies: back pain, gout, joint pain, joint swelling, muscle pain, muscle stiffness, neck pain, others Integumetry: denies: bruises, change in color, change in hair/nails, dryness, laceration, lesions, lumps, rash, wounds, others Allergic/Immunocompromised: denies: Difficulty Healing, Frequent Infections, Hives, Itching, others Hematologic/Lymphatic: denies: anemia, blood clots, easy bleeding, easy bruising, swollen glands, others Endocrine: denies: excessive hunger, excessive sweating, excessive thirst, excessive urination, flushing, intolerance to cold, intolerance to heat, unexplained weight gain, unexplained weight loss, others Psychiatric: denies: anxiety, bipolar disorder, depression, hopeless, panic disorder, schizophrenia, sleepless, suicidal, others All Other Systems: Reviewed and Negative Physical Exam General Appearance: No Apparent Distress, Normal HEENT: Normal ENT Inspection, PERRL/EOMI, Pharynx Normal, TMs Normal Neck: Full Range of Motion, Non-Tender, Normal, Normal Inspection Respiratory: Chest Non-Tender, Lungs Clear, No Accessory Muscle Use, No Respiratory Distress, Normal Breath Sounds Cardiovascular: No Edema, No JVD, No Murmur, No Gallop, Normal Peripheral Pulse s, Regular Rate/Rhythm Breast Exam: Deferred Gastrointestinal: No Organomegaly, Non Tender, No Pulsatile Mass, Normal Bowel Sounds, Soft Genitalia: Deferred Pelvic: Deferred Rectal: Deferred Extremities: No calf tenderness, Normal capillary refill, Normal inspection, Normal range of motion, Non-tender, No pedal edema Musculoskeletal : Apperance: Normal Neurologic: Alert, canopy inspector II-XII nml as Tested, No Motor Deficits, Normal Affect, Normal Mood, No Sensory Deficits Cerebellar Function: Normal Reflexes: Normal Skin: Dry, Normal Color, Warm Lymphatic: No Adenopathy Was a procedure done? Was a procedure done?: Yes Sedation Sedation?: No Informed consent obtained: Yes Other Procedure Procedure Wood's lamp Indication Pain right eye Anesthetic Tetracaine Prep Fluorescein Success Small corneal abrasion found Informed consent obtained: Yes Risks, benefits, and alternati: Yes Differential Dx Considerations may include: Conjunctivitis versus corneal abrasion versus foreign body X-Ray, Labs, Meds, VS Vital Signs Date Time Temp Pulse Resp B/P (MAP) Pulse Ox O2 Delivery O2 Flow Rate FiO2 04/17/25 15:46 97.3 102 15 116/82 97 97.3 X-Ray, Labs, Meds, VS Comment Patient seen and examined by me. Patient comes in with right eye pain. She went to the urgent care but they could not examine her there was a did not have the equipment. Patient had a Wood's lamp here which did show a small abrasion. She will be placed on antibiotic drops. Time of 1ST Reevaluation: 17:20 Reevaluation 1ST: Unchanged Time of 2ND Reevaluation: 17:12 Reevaluation 2ND: Improved Patient Education/Counseling: Diagnosis, Treatment, Prognosis Family Education/Counseling: No Family Present SEPSIS Sepsis Screen Date sepsis recognized/suspect: Apr 17, 2025 Time Sepsis recognized/suspect: 1548 Recent Procedure: No On Antibiotic Therapy: No Respiratory Rate >20: No Heart Rate >90: Yes Temp<36 C (96.8 F) or >38.3 C: No SBP <90 or MAP <65 mmHG: No New Acute Mental Status Change: No Is the patient on CPAP, BIPAP,: No Physician Orders Joiner Lamp (04/17/25 ) Vital Signs Date Time Temp Pulse Resp B/P (MAP) Pulse Ox O2 Delivery O2 Flow Rate FiO2 04/17/25 15:46 97.3 102 15 116/82 97 97.3 Departure 1 Departure Time of Disposition: 17:12 Impression: Primary Impression: Corneal abrasion, right Disposition: HOME / SELF CARE / HOMELESS Condition: Good Additional Instructions: Do not wear any makeup, do not rub your eye Use eyedrops as directed No improvement in the next 48 hours he needs to see an eye doctor Do not use any contact lenses e-Prescriptions Ofloxacin (Otic) (FLOXIN OTIC) [address] 1 DROP OT TID for 5 Days, #1 DROP Prov: JOSE MARTIN HIDALGO 04/17/25 Discharged With: Self Critical Care Note Critical Care Time?: No Stability Stability form required: No I personally scribed for ER ([email or web address]) on 04/17/25 at 16:54. Electronically submitted by Law Coburn ([email or web address]). ER Apr 17, 2025 16:54 JOSE MARTIN HIDALGO Apr 17, 2025 17:01
[2025-04-17] MEDS: TETRACAINE HCL 0.5% OPTH(EYE) SOLN 4ML RIGHTEYE ONE (17:05)
[2025-04-17] MEDS: FLUORESCEIN SOD OPTH TEST STRIP RIGHTEYE ONE (17:05)
[2025-04-17] MEDS ORDERED: OFL50TS OT (17:17)
[2025-04-17 17:23] VITALS: BP 119/94; PULSE 98; RESP 17; TEMP 98.7; O2SAT 97
[2025-04-17] MEDS ORDERED: TOBRSUS34 RIGHTEYE (17:56)
== END 2025-04-17 17:26 | disposition home or self-care (01) ==
LOC: ER 15:45
DX: S05.01XA Injury of conjunctiva and corneal abrasion without foreign body, right eye, initial encounter (principal); F41.9 Anxiety disorder, unspecified; Z79.84 Long term (current) use of oral hypoglycemic drugs; Z90.710 Acquired absence of both cervix and uterus; Z98.890 Other specified postprocedural states; X58.XXXA Exposure to other specified factors, initial encounter; Y93.89 Activity, other specified; Y92.89 Other specified places as the place of occurrence of the external cause; Y99.8 Other external cause status